=== PATIENT | female | born 1950 | race Caucasian/White ===

== ENCOUNTER 2021-02-03 04:48 | Observation (INO) | payer MEDICARE, SELFPAY ==
[2021-02-03] VITALS (11 sets, daily range): BP systolic 136–207; BP diastolic 67–77; PULSE 51–70; RESP 13–18; TEMP 35.8–36.9; O2SAT 94–99
--- NOTE | ~2021-02-03 | CT_ITS ---
EXAMINATION: CT cervical spine wo con DATE: 02/03/2021 07:24 INDICATION: Fall. Neck injury. TECHNIQUE: Computed tomography (CT) of the cervical spine was performed without intravenous contrast. Automated exposure control and iterative reconstruction technique were employed. Exam dose: 165.65 mGy-cm total exam DLP. COMPARISON: None FINDINGS: Status post anterior surgical spinal fusion at C5-C7. There is reversal cervical curvature. No fracture or dislocation or locked facet or prevertebral soft tissue swelling. Moderate degenerative disc disease at C3-4 and C4-5 and C7-T1. . There is degenerative change at the apophyseal joints throughout the cervical spine. IMPRESSION: Reversal cervical curvature Status post anterior cervical spine surgical fusion at C5-7 Cervical spondylosis Reviewed, dictated and finalized at [facility]. Reviewed, dictated and finalized at [facility].
--- NOTE | ~2021-02-03 | XR_ITS ---
EXAMINATION: XR chest 1V portable EXAM DATE: 02/03/2021 06:43 INDICATION: Fall, history of dementia and cancer. TECHNIQUE: Portable AP frontal chest x-ray was obtained. There is no prior study for comparison. FINDINGS: Right-sided Chemo-Port, intact catheter. The cardiac silhouette is enlarged. Some prominent reticulation, possible mild pulmonary edema or interstitial lung disease. No pneumothorax or pleural effusion. IMPRESSION: Cardiomegaly. Some indistinct reticulation, possible mild edema or interstitial lung dise ase. Reviewed, dictated and finalized at location [facility]. IMPRESSION: Cardiomegaly. Some indistinct reticulation, possible mild edema or interstitial lung disease.
--- NOTE | ~2021-02-03 | CT_ITS ---
EXAMINATION: CT brain wo con DATE: 02/03/2021 07:24 INDICATION: Fall TECHNIQUE: Computed tomography (CT) of the head was performed without intravenous contrast. The mA wa s adjusted according to patient size. Iterative reconstruction technique was employed. Exam dose: 60 5.33 mGy-cm total exam DLP. COMPARISON: None FINDINGS: There is a chronic small infarct of each cerebellar hemisphere. Left basal ganglia and anterior limb left internal capsule chronic lacunar infarcts. There is an old focal right parietal occipital infarct. Vertebral and bilateral carotid siphon internal carotid artery calcifications are noted. There is nonspecific diminished attenuation of the cerebral white matter, likely due to chronic small vessel ischemic changes. No intracranial mass lesion or hemorrhage, midline shift or mass effect or subdural or epidural hemat piero is detected. No fracture or bone destruction of the cranial vault. Included paranasal sinuses and the mastoid air cells are normally developed and aerated. IMPRESSION: Chronic bilateral cerebellar small infarct Chronic lacunar infarcts of the left basal ganglia and anterior limb of the left internal capsule Cerebral atherosclerosis and chronic small vessel ischemic changes of the cerebral white matter No acute intracranial finding or skull fracture Reviewed, dictated and finalized at [facility]. Reviewed, dictated and finalized at [facility]. IMPRESSION: Chronic bilateral cerebellar small infarct Chronic lacunar infarcts of the left basal ganglia and anterior limb of the lef t internal capsule Cerebral atherosclerosis and chronic small vessel ischemic changes of the cereb ral white matter No acute intracranial finding or skull fracture
--- NOTE | 2021-02-03 05:05 | ECG_ITS ---
Measurements Intervals [place] Rate: P: MI: QRS: QRSD: T: QT: QTc: Interpretive Statements SINUS RHYTHM DELAYED PRECORDIAL R/S TRANSITION BASELINE ARTIFACT- I, II, III, AVL, AVF BORDERLINE ECG Electronically Signed On 02-04-2021 13:23:00 CDT by Bandar Calderon D.O.
--- NOTE | 2021-02-03 05:10 | PC.NURSE ---
Patient's daughter states patient has also fallen twice in the past day and is unsure if she hit her head.
[2021-02-03 06:02] LABS: Basophils Absolute Auto 0.1 K/mm3 (0.0-0.1); Basophils Percent Auto 1.1 % (0.2-1.2); Eosinophils Percent Auto 0.3 % (0-4.4); Hematocrit 36.1 % (37.0-47.0); Hemoglobin 12.2 g/dL (12.0-15.0); Immature Granulocyte Absolute 0.07 K/mm3 (0.00-0.031); Immature Granulocyte Percent A 0.6 % (0-0.5); Lymphocytes Absolute Auto 0.73 K/mm3 (0.9-3.2); Lymphocytes Percent Auto 6.5 % (18.3-44.2); Mean Corpuscular HGB Conc 33.8 g/dl (32-36); Mean Corpuscular Volume 106.5 fl (80-100); Monocytes Absolute Auto 1.3 K/mm3 (0.1-0.6); Monocytes Percent Auto 11.4 % (2.6-8.5); Neutrophils Absolute Auto 8.9 K/mm3 (1.3-6.7); Neutrophils Percent Auto 80.1 % (45.5-73.1); Platelet Count Result 151 k/mm3 (150-375); Red Blood Count 3.39 M/mm3 (4.2-5.4); Red Cell Distribution Width 13.3 % (11.5-14.5); White Blood Count 11.2 K/mm3 (4.5-10.0)
[2021-02-03 06:04] LABS: Add Urine Microscopic? NO; Appearance Urine Clear (Clear); Bilirubin Urine Negative (Negative); Blood Urine Negative (Negative); Color Urine Straw (Yellow); Glucose Urine UA Negative (Negative); Ketones Urine Negative (Negative); Leukocyte Esterase Ur Negative LEU/UL (Negative); Nitrate Urine Negative (Negative); Protein Urine Negative (Negative); Specific Grav Ur 1.006 (1.001-1.035); Urobilinogen Urine Negative mg/dL (<2.0)
[2021-02-03 06:13] LABS: Acetaminophen < 10 ug/mL (10-30); Ethanol < 10 mg/dL (<10); Salicylate < 1.0 mg/dL (2-20)
[2021-02-03 06:14] LABS: Alanine Aminotransferase 10 U/L (4-35); Albumin Level 3.9 g/dL (3.5-5.1); Alkaline Phosphatase 30 U/L (38-126); Anion Gap 3 mmol/L (8-16); Aspartate Amino Transferase 29 U/L (14-36); Bilirubin,Total 0.6 mg/dL (0.2-1.3); Blood Urea Nitrogen 14 mg/dL (7-17); Calcium 8.9 mg/dL (8.4-10.2); Carbon Dioxide 35 mmol/L (22-30); Chloride 97 mmol/L (98-107); Estimated Glomerular Filt Rate 55; Glucose 92 mg/dL (65-110); Potassium 3.3 mmol/L (3.4-5.0); Sodium 135 mmol/L (137-145)
[2021-02-03 06:23] LABS: Amphetamine Screen Urine Negative (Negative); Barbiturate Screen Urine Negative (Negative); Benzodiazepines Screen Urine Positive (Negative); Cannabinoid Screen Urine Negative (Negative); Cocaine Screen Urine Negative (Negative); Methadone Screen Urine Negative (Negative); Opiate Screen Urine Negative (Negative); Phencyclidine Screen Urine Negative (Negative)
--- NOTE | 2021-02-03 06:33 | ED.OVERDOSE ---
HPI - Overdose General Chief Complaint: Overdose Stated Complaint: accidentally doubled dose of oxy/ sleeping meds Time Seen by Provider: 02/03/21 06:15 Source: family and RN notes reviewed Mode of arrival: EMS Limitations: altered mental status History of Present Illness HPI Narrative: This is a 70 year old female who presents for evaluation of an accidental overdose on her medications. Patient's daughter is at bedside. She states patient is here from out of town. She found patient on the kitchen floor tonight , and she was snoring and unresponsive. When she looked at patient's medications it appears that she took double her normal dose of her night time medication which include xanax, trazadone and oxycodone. Patient was given 2 mg narcan in route by EMS, and she became more responsive. Patient is back to being asleep again. Related Data Home Medications Medication Instructions Recorded Confirmed alprazolam 02/03/21 clonidine 02/03/21 estradiol mg 02/03/21 hydralazine 02/03/21 levothyroxine 02/03/21 oxycodone-acetaminophen 02/03/21 pantoprazole PO 02/03/21 trazodone 02/03/21 venlafaxine mg 02/03/21 Allergies Allergy/AdvReac Type Severity Reaction Status Date / Time meperidine [From Demerol] Allergy Unknown Verified 02/03/21 05:03 propoxyphene [From Darvon] Allergy Unknown Verified 02/03/21 05:03 Review of Systems Review of Systems: ROS unobtainable: Yes unobtainable due to mental status PMFSH Past Medical History Medical History (Updated 02/03/21 @ 08:56 by Rufina Sunshine MD) Anxiety Cerebral aneurysm Chronic pain Hypertension Hypothyroidism Surgical History Surgical History (Updated 02/03/21 @ 06:39 by Rufina Sunshine MD) H/O cerebral aneurysm repair Social History Social History (Updated 02/03/21 @ 06:38 by Rufina Sunshine MD) Smoking status: Smoker, status unknown Alcohol intake: unknown Substance use: unknown Exam Const: General: no acute distress Nutritional Appearance: thin Other: patient sleeping Eyes: Other: pinpoint pupil Resp: Effort & Inspection: normal respiratory effort and no retractions Auscultation: clear to auscultation bilaterally Cardio: Rate: regular rate Rhythm: regular rhythm Heart sounds: no murmurs GI: GI Palp: Yes Soft to palpation, No Tenderness to palpation present (GI) and No Guarding due to palpation present (GI) Auscultation: normal bowel sounds Skin: General skin exam: normal color Rashes: no rashes Neuro: General: moves all extremities Other: respond to sternal rub Extrem: General: normal to inspection Course Reevaluation(s) Reevaluation #1: I discussed with patient's daughter that she will be admitted for observation. she is able to protect her airway. Patient likely doubld dose on xanax, trazodone, oxycodone. Minimal response to narcan Date: 02/03/21 Time: 08:00 Consultations Consultation #1: I discussed case with DR. Og who accepts patien to the floor for observation. Date: 02/03/21 Time: 08:16 Vital Signs Vital signs: Vital Signs Temperature 98.5 F 02/03/21 04:46 Pulse Rate 70 02/03/21 04:46 Respiratory Rate 17 02/03/21 04:46 Blood Pressure 207/68 H 02/03/21 04:46 Pulse Oximetry 95 02/03/21 04:46 Temperature 98.5 F 02/03/21 04:46 Pulse Rate 54 L 02/03/21 08:07 Respiratory Rate 13 02/03/21 08:07 Blood Pressure 146/68 H 02/03/21 08:07 Pulse Oximetry 95 02/03/21 08:07 MDM - Overdose Lab Data Attestation: I reviewed the patient's lab results. Result diagrams: 02/03/21 05:49 02/03/21 05:50 Labs: Lab Results 02/03/21 02/03/21 02/03/21 Range/Units 05:45 05:45 05:49 WBC 11.2 H (4.5-10.0) K/mm3 RBC 3.39 L (4.2-5.4) M/mm3 Hgb 12.2 (12.0-15.0) g/dL Hct 36.1 L (37.0-47.0) % MCV 106.5 H (80-100) fl MCH 36.0 H (26-34) pg MCHC 33.8 (32-36) g/dl RDW 13.3 (11.5-14.5) % Pl
[2021-02-03 06:55] LABS: Alveolar/Arterial O2 Gradient 23.2 mmHg; Carboxyhemoglobin 0.3 % THb (0-2.0); Fractional Inspired Oxygen 21 %; HCO3 ABG 33.4 mEq/l (22.0-26.0); Methemoglobin ABG 0.4 %THb (0-1.5); Oxygen Content ABG 15.5 %vol (16.0-22.0); Oxygen Saturation ABG 93.6 % (95.0-100.0); Oxyhemoglobin 91.2 % THb (90.0-100.0); PCO2 ABG 50.2 mmHg (35.0-45.0); PO2 ABG 66.4 mmHg (80.0-100.0); PO2 FiO2 Ratio Arterial Blood 3.16 %; Reduced Hemoglobin 8.1 %THb (0-5.0); Total Hemoglobin 12.1 g/dL (12.0-18.0); pH ABG 7.441 (7.350-7.450)
[2021-02-03 06:56] LABS: Modified Allen's Test Unable to perform; Site Drawn RIGHT RADIAL
[2021-02-03] MEDS: NALOXONE HCL 0.4 MG/ML VIAL IV PUSH (07:45)
--- NOTE | 2021-02-03 07:51 | PC.NURSE ---
Per EDP at bedside Dr Jong ANNE, give second dose of 0.4 Narcan IVP.
[2021-02-03] MEDS: NALOXONE HCL 0.4 MG/ML VIAL (07:54)
--- NOTE | 2021-02-03 08:28 | PC.NURSE ---
called lab spoke to Radha feng on a Trop 1 baseline at 0828
[2021-02-03 09:28] LABS: Troponin I 0.035 ng/mL (0.000-0.034)
--- NOTE | 2021-02-03 12:49 | PM.IMHP ---
H&P: HPI History of Present Illness Date/Time: 02/03/21 12:49 Chief Complaint: Altered mental status Narrative: History was obtained from the patient's daughter was at bedside and from review of the patient's chart. 70-year-old female with history of Alzheimer dementia and prior history of on known type of cancer treated with chemotherapy resulting in chronic pain syndrome fluid from her home and [place] where she resides with her to visit her daughter locally. Her packed an adequate supply of her medication. He put her medications for travel and a Ziploc bag. Last evening she took the medication in a Ziploc bag. Then after her daughter went to bed the patient noted that the medication box was still full so she took that as well. She became very groggy and more confused and fell to her 3 times. No resultant injuries. This morning her daughter had difficulty awakening her so she brought her to the emergency department. Narcan on route helped her wake up. But then she went back to sleep again. Narcan in the emergency room allow the daughter to talk to her for 20 minutes or so. Then she was sound asleep again. Nighttime medications include Percocet 10-325, Xanax 0.5 mg, and trazodone 50 mg. Patient was at her baseline mental status with poor short-term memory. Upon arrival yesterday she had some episodes of diarrhea. Normally she is continent of bowel and bladder. However with the diarrhea, 3 episodes, she had incontinence of stool. Her baseline appetite is very good. Since last night she has not eaten. Prior to taking her nighttime medicines she had no complaints of chest pain shortness of breath swelling dizziness abdominal pain nausea vomiting. No recent weight loss. No fevers or chills. No cough or congestion. This history was obtained from the daughter. Review of Systems Review of Systems: ROS unobtainable: Yes unobtainable due to medical condition PMFSH Past Medical History Medical History (Updated 02/03/21 @ 13:23 by Smith Og MD) Anxiety Cerebral aneurysm Cerebrovascular disease Chronic pain Dementia History of cancer of unknown primary site Hypertension Hypothyroidism Surgical History Surgical History H/O cerebral aneurysm repair Family History Family History (Updated 02/03/21 @ 13:00 by Smith Og MD) Mother No problems noted. Father No problems noted. Social History Social History (Updated 02/03/21 @ 13:01 by Smith Og MD) Smoking status: Unknown if ever smoked Alcohol intake: unknown Substance use type: does not use Living arrangements: with family Additional living arrangements comments: Live with in [place]. Occupation/Education: retired Meds Home Medications and Allergies Home Medications Medication Instructions Recorded Confirmed Type alprazolam 02/03/21 History clonidine 02/03/21 History estradiol mg 02/03/21 History hydralazine 02/03/21 History levothyroxine 02/03/21 History oxycodone-acetaminophen 02/03/21 History pantoprazole PO 02/03/21 History trazodone 02/03/21 History venlafaxine mg 02/03/21 History Allergies Allergy/AdvReac Type Severity Reaction Status Date / Time meperidine [From Demerol] Allergy Unknown Verified 02/03/21 05:03 propoxyphene [From Darvon] Allergy Unknown Verified 02/03/21 05:03 Vital Signs Vital Signs - 24 hr 02/03/21 04:46 02/03/21 07:46 02/03/21 08:07 Temperature 98.5 F Pulse Rate 70 67 54 L Respiratory Rate 18 13 13 Blood Pressure 207/68 H 170/77 H 146/68 H Pulse Oximetry 95 96 95 02/03/21 09:05 02/03/21 09:16 02/03/21 10:46 Temperature Pulse Rate 57 L 68 57 L Respiratory Rate 14 15 15 Blood Pressure 136/68 158/71 H 169/70 H Pulse Oximetry 97 95 94 Exam Narrative: Exam Narrative: HEENT: PINPOINT PUPILS, sclerae nonicteric, pharyngeal muco
--- NOTE | 2021-02-03 13:29 | PC.NURSE ---
This patient, Haley Suarez, was admitted to [facility] Surg Room 322-01. Report received from NADINE Muhammad. Patient/family oriented to hospital policies and general routines including ID bracelet, bed and alarms, visiting hours, pain management, procedures, bathroom and other care routines, personal items, smoking policy, room service/diet, and visiting hours. Information on how to activate the Rapid Response Team has been discussed. Patient/Family are encouraged to report perceived risks to care and to ask questions if they do not understand what they are told or what they should do.
[2021-02-03] MEDS: KCL 20MEQ/0.9% SOD CHL 1,000 ML 75 ML IV CONT (14:59)
[2021-02-03] MEDS: cloNIDine HCL 0.2 MG TABLET PO (17:11)
[2021-02-03] MEDS: hydrALAZINE HCL 50 MG TABLET 100 MG PO (17:11)
[2021-02-03] MEDS: ACETAMINOPHEN 500 MG TABLET 1000 MG PO (17:11)
[2021-02-03] MEDS: PROPRANOLOL HCL 10 MG TABLET PO (17:11)
[2021-02-03] MEDS: ENOXAPARIN 40 MG/0.4 ML SYRINGE SUB-Q (17:12)
[2021-02-03] MEDS: GABAPENTIN 300 MG CAPSULE PO (17:58)
[2021-02-03] MEDS: ACYCLOVIR 400 MG TABLET PO (17:58)
[2021-02-03] MEDS: rOPINIRole HCL 1 MG TABLET 2 MG PO (17:58)
[2021-02-03] MEDS: GABAPENTIN 300 MG CAPSULE 600 MG PO (21:16)
[2021-02-03] MEDS: traZODone HCL 50 MG TABLET 150 MG PO (21:17)
[2021-02-03] MEDS: oxyCODONE HCL (*CRX) 2.5 MG TAB IR PO (21:22)
[2021-02-04] VITALS: PULSE 62
[2021-02-04] MEDS: ACETAMINOPHEN 500 MG TABLET 1000 MG PO ×2 (00:15→06:34)
[2021-02-04] MEDS: LORazepam INJ (*CRX) 2 MG/ML VIAL 0.5 MG IV PUSH (00:16)
[2021-02-04 04:00] VITALS: PULSE 71
[2021-02-04] MEDS: KCL 20MEQ/0.9% SOD CHL 1,000 ML 75 ML IV CONT (05:36)
[2021-02-04] MEDS: LEVOTHYROXINE SODIUM 75 MCG TABLET PO (05:38)
[2021-02-04 06:00] VITALS: BP 139/68; PULSE 53; RESP 16; TEMP 36.3; O2SAT 95
[2021-02-04] MEDS: oxyCODONE HCL (*CRX) 2.5 MG TAB IR PO (07:48)
--- NOTE | 2021-02-04 07:49 | PC.NURSE ---
After evening med pass, patient continued to deny having taken her medication. She said repeatedly that she had left her pills on her late meal tray. Her tray was returned to show her the empty med cups and this seemed to finally give her enough sense of confirmation not to ask for the rest of the night. This is further evidence that there is some concern for forgetting the medications she has taken at night.
[2021-02-04] MEDS: VENLAFAXINE HCL 75 MG TABLET PO (07:50)
[2021-02-04] MEDS: estradioL 1 MG TABLET 2 MG PO (07:50)
[2021-02-04] MEDS: hydrALAZINE HCL 50 MG TABLET 100 MG PO (07:51)
[2021-02-04] MEDS: NIFEdipine 30 MG TAB.ER.24 90 MG PO (07:51)
[2021-02-04] MEDS: cloNIDine HCL 0.2 MG TABLET PO (07:51)
[2021-02-04] MEDS: GABAPENTIN 300 MG CAPSULE PO (07:52)
[2021-02-04] MEDS: ACYCLOVIR 400 MG TABLET PO (07:52)
[2021-02-04] MEDS: PANTOPRAZOLE 40 MG TABLET PO (07:52)
[2021-02-04 08:00] VITALS: PULSE 50
[2021-02-04 08:03] VITALS: BMI 21.5
[2021-02-04 08:42] LABS: Anion Gap 1 mmol/L (8-16); Blood Urea Nitrogen 6 mg/dL (7-17); Calcium 8.6 mg/dL (8.4-10.2); Carbon Dioxide 31 mmol/L (22-30); Chloride 102 mmol/L (98-107); Estimated CRCL calculation 52 ml/min; Estimated Glomerular Filt Rate > 60; Glucose 92 mg/dL (65-110); Potassium 3.5 mmol/L (3.4-5.0); Sodium 134 mmol/L (137-145)
[2021-02-04 10:39] VITALS: PULSE 65
[2021-02-04] MEDS: PROPRANOLOL HCL 10 MG TABLET PO (10:39)
[2021-02-04] MEDS: LOPERAMIDE HCL 2 MG CAPSULE PO (11:15)
--- NOTE | 2021-02-04 11:20 | PM.DS ---
DS: Admitting Diagnosis Admitting Diagnosis Accidental drug ingestion DS: Discharge Diagnosis Discharge Diagnosis (1) Accidental drug ingestion: Code(s): T50.901A - Poisoning by unspecified drugs, medicaments and biological substances, accidental (unintentional), initial encounter Status: Acute Assessment and Plan: Accidentally took her evening medications twice due to confusion with her pill boxes because she was traveling. Admitted for observation Received low-dose naloxone Her mental status improved. Discussed at length the need to or in eyes medications and pillbox and consider setting reminders on phone, especially when traveling. She will need to follow-up with her PCP and review her medication list. She would benefit from benzodiazepine taper in consider alternative pain management options aside from narcotics (2) Decreased responsiveness: Code(s): R41.89 - Other symptoms and signs involving cognitive functions and awareness Status: Acute Assessment and Plan: Consistent with accidental drug overdose as described above (3) Chronic pain syndrome: Code(s): G89.4 - Chronic pain syndrome Status: Acute Assessment and Plan: Narcotics and benzodiazepines initially held. Were resumed upon improvement of mental status. As above, will need to follow-up with PCP for consideration of medication adjustment/taper (4) Dementia: Code(s): F03.90 - Unspecified dementia without behavioral disturbance Status: Acute Assessment and Plan: Baseline not clear to me. She was A&O x4 on my encounter. (5) History of cancer of unknown primary site: Code(s): Z85.9 - Personal history of malignant neoplasm, unspecified Status: Acute Assessment and Plan: History of remission with lingering neuropathic pain (6) Hypokalemia: Code(s): E87.6 - Hypokalemia Status: Acute Assessment and Plan: Likely due to poor intake and episode of diarrhea 02/02. Potassium was replaced and levels normalized. Anticipate complete resolution with continuation of her regular diet (7) Hyponatremia: Code(s): E87.1 - Hypo-osmolality and hyponatremia Status: Acute Assessment and Plan: Very mild. Likely due to decreased intake and episode of diarrhea 02/02. (8) Diarrhea: Code(s): R19.7 - Diarrhea, unspecified Status: Acute Assessment and Plan: Resolved. May have been due to change in diet during travel. No sign of acute infection. Given one time immodium and started on probiotic. (9) Hypertension: Code(s): I10 - Essential (primary) hypertension Status: Acute Assessment and Plan: BP reviewed. Continue home regimen (10) Hypothyroidism: Code(s): E03.9 - Hypothyroidism, unspecified Status: Acute Assessment and Plan: continue home regimen (11) Acute respiratory failure with hypoxia and hypercarbia: Code(s): J96.01 - Acute respiratory failure with hypoxia; J96.02 - Acute respiratory failure with hypercapnia Status: Acute Assessment and Plan: Clinically due to narcotic and benzodiazepine overdose. Resolved entirely and she was tolerating room air. (12) Cerebrovascular disease: Code(s): I67.9 - Cerebrovascular disease, unspecified Status: Acute Assessment and Plan: As shown by old infarcts and atherosclerosis on CT brain. Continue aspirin therapy DS: Summary Hospital Course Hospital Course: Date of admission: 02/03/2021 date of discharge: 02/04/2021 Haley Suarez is a 70-year-old female with a history cerebrovascular disease, dementia, chronic pain, hypertension, and hypothyroidism who presented to the emergency department on 02/03/2021 after an accidental overdose of her medications. She was traveling to the area from [place] to visit her daughter. She took the medications that were organ
== END 2021-02-04 12:04 | disposition home or self-care (01) ==
LOC: ANHED 08:56 → ANH3MEDSUR 12:02
PROVIDERS: Admitting Provider Internal Medicine; Emergency Provider General Practice; Visit Provider Internal Medicine Critical Care Medicine
DX: T42.4X1A Poisoning by benzodiazepines, accidental (unintentional), initial encounter (principal); T43.211A Poisoning by selective serotonin and norepinephrine reuptake inhibitors, accidental (unintentional), initial encounter; T40.2X1A Poisoning by other opioids, accidental (unintentional), initial encounter; R40.20 Unspecified coma; J96.01 Acute respiratory failure with hypoxia; J96.02 Acute respiratory failure with hypercapnia; E87.6 Hypokalemia; E87.1 Hypo-osmolality and hyponatremia; G89.4 Chronic pain syndrome; R19.7 Diarrhea, unspecified; G30.9 Alzheimer's disease, unspecified; F02.80 Dementia in other diseases classified elsewhere, unspecified severity, without behavioral disturbance, psychotic disturbance, mood disturbance, and anxiety; I10 Essential (primary) hypertension; E03.9 Hypothyroidism, unspecified; I67.9 Cerebrovascular disease, unspecified; M47.812 Spondylosis without myelopathy or radiculopathy, cervical region; Z85.9 Personal history of malignant neoplasm, unspecified; Z92.21 Personal history of antineoplastic chemotherapy; F41.9 Anxiety disorder, unspecified; Z98.1 Arthrodesis status
CPT/HCPCS: 36415; 36600; 70450; 71045; 72125; 80048; 80053; 80307; 81003; 82375; 82805; 83050; 84443; 84484; 85025; 93005; 96361; 96372; 96374; 96375; 99285; A9270; G0378; J1650; J2060; J2310; J3480

== ENCOUNTER 2023-10-22 11:47 | Inpatient (IN) | payer MEDICARE, SELFPAY ==
[2023-10-22] VITALS (28 sets, daily range): BP systolic 92–165; BP diastolic 55–87; PULSE 53–78; RESP 10–19; TEMP 36.2–36.3; O2SAT 96–100; BMI 19.2
--- NOTE | ~2023-10-22 | XR_ITS ---
EXAMINATION: XR chest 1V DATE: 10/22/2023 12:34 INDICATION: Altered mental status. TECHNIQUE: A single frontal view of the chest was obtained on 2 radiographs. COMPARISON: None. FINDINGS: There is no pneumonia, pleural effusion, or pneumothorax. The heart size is normal. There i s a right internal jugular port with tip in superior vena cava. There are surgical clips in right nec k. IMPRESSION: 1. No acute cardiopulmonary disease. Reviewed, dictated and finalized at location A.
--- NOTE | ~2023-10-22 | CT_ITS ---
EXAMINATION: CT brain wo con DATE: 10/22/2023 12:37 INDICATION: Unresponsive. TECHNIQUE: Computed tomography (CT) of the head was performed without intravenous contrast. The mA wa s adjusted according to patient size. Iterative reconstruction technique was employed. The dose-lengt h product was 529.67 mGy-cm. COMPARISON: None FINDINGS: There are old infarcts in right frontotemporal region, right frontal lobe, and right pariet al lobe. There is an old lacunar infarct in the owen. There are old infarcts in the left basal gangli a. There are scattered areas of low attenuation in the cerebral white matter, likely chronic small ve ssel ischemic disease. There is an old infarct in left occipital lobe. There are old infarcts in the cerebellum bilaterally. There is no intracranial hemorrhage, acute infarction, or abnormal intracrani al mass lesion. There is ex vacuo dilatation of right lateral ventricle. There are likely changes of ocular lens replacement surgeries. The paranasal sinuses are clear. The mastoid air cells are normal. There is a stent in right middle cerebral artery. There is a surgical clip in the area of right midd le cerebral artery. There are changes of right-sided craniotomy. IMPRESSION: 1. Multiple old infarcts in the brain. Reviewed, dictated and finalized at location A.
[2023-10-22 12:00] LABS: Glucose Point of Care 142 mg/dl (65-105)
[2023-10-22] MEDS: SODIUM CHLORIDE 0.9% IV 1,000 ML 999 ML IV CONT ×2 (12:06→13:01)
--- NOTE | 2023-10-22 12:08 | ECG_ITS ---
SEE SCANNED COPY FOR CONFIRMED REPORT MTDD
--- NOTE | 2023-10-22 12:09 | ED.AMS ---
HPI - Altered Mental Status General Chief Complaint: Altered Mental Status Stated Complaint: unresponsive Time Seen by Provider: 10/22/23 12:04 Source: patient and EMS Mode of arrival: EMS Limitations: altered mental status History of Present Illness HPI narrative: 73-year-old female presenting via EMS for being ?unresponsive? while getting her nails done. They found her hypotensive and bradycardic and gave her push dose epinephrine. Prior to arrival patient is now completely alert, disoriented and slightly confused but she is following commands. She has no complaints but is a poor historian Related Data Home Medications Medication Instructions Recorded Confirmed acyclovir 400 mg tablet 400 mg PO BID 02/03/21 02/03/21 alprazolam 0.5 mg tablet 0.5 mg PO Q6-8H PRN Anxiety 02/03/21 02/03/21 aspirin 81 mg chewable tablet 81 mg PO DAILY 02/03/21 02/03/21 cholecalciferol (vitamin D3) 25 25 mcg PO DAILY 02/03/21 02/03/21 mcg (1,000 unit) capsule (Vitamin D3) clonidine HCl 0.2 mg tablet 0.2 mg PO TID 02/03/21 02/03/21 cyanocobalamin (vitamin B-12) 2,500 mcg PO DAILY 02/03/21 02/03/21 2,500 mcg tablet estradiol 2 mg tablet 2 mg PO DAILY 02/03/21 02/03/21 furosemide 40 mg tablet 40 mg PO DAILY 02/03/21 02/03/21 gabapentin 300 mg capsule 300 mg PO BID 02/03/21 02/03/21 gabapentin 300 mg capsule 600 mg PO HS 02/03/21 02/03/21 hydralazine 100 mg tablet 100 mg PO BID 02/03/21 02/03/21 ibrutinib 140 mg capsule 420 mg PO HS 02/03/21 02/03/21 (Imbruvica) levothyroxine 75 mcg tablet 75 mcg PO DAILY 02/03/21 02/03/21 nifedipine 90 mg tablet,extended 90 mg PO DAILY 02/03/21 02/03/21 release pantoprazole 40 mg tablet,delayed 40 mg PO DAILY 02/03/21 02/03/21 release propranolol 10 mg tablet 10 mg PO BID 02/03/21 02/03/21 pyridoxine (vitamin B6) 500 mg 1,000 mg PO DAILY 02/03/21 02/03/21 tablet ropinirole 2 mg tablet 2 mg PO QPM 02/03/21 02/03/21 trazodone 50 mg tablet 150 mg PO HS 02/03/21 02/03/21 venlafaxine 75 mg tablet 75 mg PO DAILY 02/03/21 02/03/21 Allergies Allergy/AdvReac Type Severity Reaction Status Date / Time meperidine [From Demerol] Allergy Unknown Verified 02/03/21 14:04 propoxyphene [From Darvon] Allergy Unknown Verified 02/03/21 14:04 Review of Systems Review of Systems: ROS unobtainable: Yes unobtainable due to mental status PMFSH Past Medical History Medical History Anxiety Cerebral aneurysm Cerebrovascular disease Chronic pain Dementia History of cancer of unknown primary site Hypertension Hypothyroidism Surgical History Surgical History H/O cerebral aneurysm repair Family History Family History Mother No problems noted. Father No problems noted. Social History Social History Smoking packs per day: 0.5 Smoking cigarettes per day: 10.0 Years smoked: 30 Smoking pack-years: 15.00 Smoking status: Unknown if ever smoked Tobacco type: cigarettes Alcohol intake: unknown Substance use type: does not use Living arrangements: with family Additional living arrangements comments: Live with in [place]. Occupation/Education: retired Spiritual care concerns: No Exam Narrative: Constitutional: Generally well appearing, no acute distress, sluggish to respond Head: Atraumatic, no deformities. Eyes: Pupils equal, round, and reactive to light. Neck: Supple, no tracheal deviation, no JVD. ENMT: Mucous membranes moist Cardiovascular: S1, S2 auscultated. No murmurs, rubs, or gallops. No S3/S4. Normal Distal pulses. No peripheral edema. Respiratory: Lung sounds equal. No wheezes, rales, or rhonchi. Gastrointestinal: Abdomen was soft and non-tender. Non-distended. No rebound or guarding. Genitourinary: Deferred M
[2023-10-22 12:28] LABS: Basophils Absolute Auto 0.1 K/mm3 (0.0-0.1); Basophils Percent Auto 1.1 % (0.2-1.2); Eosinophils Absolute Auto 0.1 K/mm3 (0-0.3); Hematocrit 39.2 % (37.0-47.0); Hemoglobin 13.2 g/dL (12.0-15.0); Immature Granulocyte Absolute 0.02 K/mm3 (0.00-0.031); Immature Granulocyte Percent A 0.3 % (0-0.5); Lymphocytes Absolute Auto 1.34 K/mm3 (0.9-3.2); Lymphocytes Percent Auto 20.6 % (18.3-44.2); Mean Corpuscular HGB Conc 33.7 g/dl (32-36); Mean Corpuscular Hemoglobin 33.6 pg (26-34); Mean Corpuscular Volume 99.7 fl (80-100); Mean Platelet Volume 11.5 fl (7.4-10.4); Monocytes Absolute Auto 0.8 K/mm3 (0.1-0.6); Monocytes Percent Auto 11.7 % (2.6-8.5); Neutrophils Absolute Auto 4.2 K/mm3 (1.3-6.7); Neutrophils Percent Auto 64.3 % (45.5-73.1); Platelet Count Result 211 k/mm3 (150-375); Red Blood Count 3.93 M/mm3 (4.2-5.4); Red Cell Distribution Width 12.4 % (11.5-14.5); White Blood Count 6.5 K/mm3 (4.5-10.0)
[2023-10-22 12:34] LABS: Ammonia < 9 umol/L (9-30); Ethanol < 10 mg/dL (<10)
[2023-10-22 12:36] LABS: Prothrombin Time 13.6 Seconds (11.1-14.7)
[2023-10-22 12:38] LABS: Alanine Aminotransferase 11 U/L (6-35); Albumin Level 4.1 g/dL (3.5-5.1); Alkaline Phosphatase 45 U/L (38-126); Anion Gap 8 mmol/L (4-12); Aspartate Amino Transferase 21 U/L (14-36); Bilirubin,Total 0.4 mg/dL (0.2-1.3); Blood Urea Nitrogen 27 mg/dL (7-17); Calcium 9.2 mg/dL (8.4-10.2); Carbon Dioxide 28 mmol/L (22-30); Chloride 99 mmol/L (98-107); Creatine Kinase 47 U/L (30-135); Estimated CRCL calculation 24 ml/min; Estimated Glomerular Filt Rate 34; Glucose 133 mg/dL (65-110); Partial Thromboplastin Time 28.3 Seconds (22.3-36.8); Potassium 3.4 mmol/L (3.4-5.0); Sodium 135 mmol/L (137-145)
[2023-10-22 12:49] LABS: Troponin I 0.013 ng/mL (0.000-0.034)
[2023-10-22 13:58] LABS: Lactic Acid Reflex 1.5 mmol/L (0.7-2.0)
[2023-10-22] MEDS: SODIUM CHLORIDE 0.9% IV 1,000 ML 125 ML IV CONT (15:45)
--- NOTE | 2023-10-22 16:49 | PC.NURSE ---
Dinner tray ordered for pt.
[2023-10-22 18:10] LABS: Amphetamine Screen Urine Negative (Negative); Appearance Urine Clear (Clear); Barbiturate Screen Urine Negative (Negative); Benzodiazepines Screen Urine Negative (Negative); Bilirubin Urine Negative (Negative); Blood Urine Negative (Negative); Cannabinoid Screen Urine Negative (Negative); Cocaine Screen Urine Negative (Negative); Color Urine Yellow (Yellow); Glucose Urine UA Negative (Negative); Ketones Urine Negative (Negative); Leukocyte Esterase Ur Negative LEU/UL (Negative); Methadone Screen Urine Negative (Negative); Nitrate Urine Negative (Negative); Opiate Screen Urine Negative (Negative); Phencyclidine Screen Urine Negative (Negative); Protein Urine Negative (Negative); Specific Grav Ur 1.008 (1.001-1.035); Urobilinogen Urine 0.2 mg/dL (<2.0); pH Urine 5.5 (5.0-9.0)
[2023-10-22 18:13] LABS: Add Urine Microscopic? NO
--- NOTE | 2023-10-22 18:15 | PC.NURSE ---
Called for an update on pts dinner, sheyla has not arrived to ED.
--- NOTE | 2023-10-22 21:28 | PM.IMHP ---
H&P: HPI History of Present Illness Date/Time: 10/22/23 21:28 Chief Complaint: altered mental status Narrative: This is a 73-year-old female with past medical history significant for anxiety, hypertension, hypothyroidism, chronic pain, dementia. Patient was brought to the emergency room via EMS after having episode of syncope found to be bradycardic and hypotensive received epinephrine on the field upon arrival to emergency room patient was back to her usual. Patient has no recollection of events and expresses that she has been diagnosed with dementia and has problems with her memory and word-finding. Patient can not really contribute in a meaningful way to her history. Preliminary workup here has been essentially nonrevealing. Patient has been placed in observation for further evaluation management and treatment. EXAMINATION: CT brain wo con DATE: 10/22/2023 12:37 INDICATION: Unresponsive. TECHNIQUE: Computed tomography (CT) of the head was performed without intravenous contrast. The mA was adjusted according to patient size. Iterative reconstruction technique was employed. The dose-length product was 529.67 mGy-cm. COMPARISON: None FINDINGS: There are old infarcts in right frontotemporal region, right frontal lobe, and right parietal lobe. There is an old lacunar infarct in the owen. There are old infarcts in the left basal ganglia. There are scattered areas of low attenuation in the cerebral white matter, likely chronic small vessel ischemic disease. There is an old infarct in left occipital lobe. There are old infarcts in the cerebellum bilaterally. There is no intracranial hemorrhage, acute infarction, or abnormal intracranial mass lesion. There is ex vacuo dilatation of right lateral ventricle. There are likely changes of ocular lens replacement surgeries. The paranasal sinuses are clear. The mastoid air cells are normal. There is a stent in right middle cerebral artery. There is a surgical clip in the area of right middle cerebral artery. There are changes of right-sided craniotomy. IMPRESSION: 1. Multiple old infarcts in the brain. EXAMINATION: XR chest 1V DATE: 10/22/2023 12:34 INDICATION: Altered mental status. TECHNIQUE: A single frontal view of the chest was obtained on 2 radiographs. COMPARISON: None. FINDINGS: There is no pneumonia, pleural effusion, or pneumothorax. The heart size is normal. There is a right internal jugular port with tip in superior vena cava. There are surgical clips in right neck. IMPRESSION: 1. No acute cardiopulmonary disease. Review of Systems Review of Systems: AMS ROS unobtainable: Yes other ([facility] Past Medical History Medical History Anxiety Cerebral aneurysm Cerebrovascular disease Chronic pain Dementia History of cancer of unknown primary site Hypertension Hypothyroidism Surgical History Surgical History H/O cerebral aneurysm repair Family History Family History Mother No problems noted. Father No problems noted. Social History Social History Smoking packs per day: 0.5 Smoking cigarettes per day: 10.0 Years smoked: 30 Smoking pack-years: 15.00 Smoking status: Former smoker Tobacco type: cigarettes Alcohol intake: never Substance use: never Substance use type: former substance user Do You Feel Safe in your Home?: Yes Lack of Transportation: No Lack of Food: Never True Current Housing: I Have Housing Concerned About Future Housing: No Difficulty Paying Gas/Electric Bills: No Difficulty Paying for Meds: No Currently Unemployed: No Education: High School Diploma/GED Difficulty w/ Childcare or Family Care: No Living arrangements: with family A
--- NOTE | 2023-10-22 21:37 | PC.NURSE ---
Pt is 98% on room air, taken off 2 L NC O2 at this time.
--- NOTE | 2023-10-22 22:15 | ADMGEN ---
This patient, Haley Suarez, was admitted to IMU Room 206-01. Patient/family oriented to hospital policies and general routines including ID bracelet, bed and alarms, visiting hours, pain management, procedures, bathroom and other care routines, personal items, smoking policy, room service/diet, and visiting hours. Information on how to activate the Rapid Response Team has been discussed. Patient/Family are encouraged to report perceived risks to care and to ask questions if they do not understand what they are told or what they should do.
[2023-10-23] VITALS (16 sets, daily range): BP systolic 133–178; BP diastolic 74–109; PULSE 60–102; RESP 14–20; TEMP 36–36.9; O2SAT 95–97
[2023-10-23] MEDS: SODIUM CHLORIDE 0.9% IV 1,000 ML 125 ML IV CONT (05:45)
[2023-10-23] MEDS: LEVOTHYROXINE SODIUM 75 MCG TABLET PO (05:46)
[2023-10-23] MEDS: carvediloL 12.5 MG TABLET BY MOUTH ×2 (08:25→21:33)
[2023-10-23] MEDS: LACOSAMIDE (*CRX) 100 MG TABLET PO ×2 (08:25→17:51)
[2023-10-23] MEDS: amLODIPine BESYLATE 5 MG TABLET 10 MG PO (08:25)
[2023-10-23] MEDS: MEMANTINE 10 MG TABLET PO ×2 (08:25→21:33)
[2023-10-23] MEDS: GABAPENTIN 300 MG CAPSULE PO ×2 (08:27→11:59)
[2023-10-23] MEDS: VENLAFAXINE HCL 75 MG TABLET PO ×2 (08:28→21:33)
[2023-10-23] MEDS: estradioL 1 MG TABLET 2 MG PO (08:28)
[2023-10-23] MEDS: levETIRAcetam 250 MG TABLET PO ×2 (08:29→21:32)
[2023-10-23] MEDS: levETIRAcetam 500 MG TABLET PO ×2 (08:29→21:32)
--- NOTE | 2023-10-23 11:24 | PM.IMPN ---
Progress Note: A&P Assessment and Plan (1) JENNIFER (acute kidney injury): Code(s): N17.9 - Acute kidney failure, unspecified Status: Acute (2) Syncope: Code(s): R55 - Syncope and collapse Status: Acute (3) Polypharmacy: Code(s): Z79.899 - Other shelter (current) drug therapy Status: Acute (4) Dementia: Code(s): F03.90 - Unspecified dementia, unspecified severity, without behavioral disturbance, psychotic disturbance, mood disturbance, and anxiety Status: Acute Plan # syncope - patient had episode of hypotension, may be orthostatic - now hypertensive resume home amlodipine and Coreg - will check orthostatic vitals - stable normal sinus rhythm rate 80s to 100s, no bradycardia, no arrhythmia - patient 2 L of fluid fluids overnight, will discontinue IV fluids as she is tolerating p.o. intake and is hypertensive # chronic conditions - essential hypertension: Amlodipine 10 mg, carvedilol 12.5 mg b.i.d., p.r.n. hydralazine - abdominal spasms: Bentyl p.r.n. - peripheral neuropathy: Continue home gabapentin - seizure disorder: Vimpat, Keppra - hypothyroidism: Synthroid - dementia: Namenda - insomnia: Trazodone - depression: Venlafaxine Diet: Regular diet DVT prophylaxis: Lovenox Code status: full code Disposition: Likely home tomorrow, downgrade to med floor Social: daughter Elisa updated [phone] Subjective Date/time seen: 10/23/23 11:25 Interval history: Patient seen and examined. She is doing well no new complaints. Will have her work with PT and OT. I discussed with patient's daughter Elisa [phone]. patient apparently occasionally will have these hypotension episodes. this morning she was hypertensive in all her home meds have been resumed. We will downgrade from IMU to med surge. Will continue monitor overnight and PT evaluation. Likely discharge home tomorrow. She has PCP appointment this coming Thursday. patient denies fever, chills, nausea, vomiting, diarrhea, lightheadedness, dizziness. She has dementia and poor recollection of events. Review of Systems Review of Systems: 10 point ROS complete, negative other than what is specified in HPI. Exam Narrative: - GENERAL: Pleasant older woman in no acute distress. Well-nourished. - EYES: EOMI. Anicteric. - HENT: Moist mucous membranes. - LUNGS: Clear to auscultation bilaterally, no wheezing, rhonchi, or rales. - CARDIOVASCULAR: Regular rate and rhythm. No murmur. No JVD. - ABDOMEN: Soft, non-tender and non-distended. No palpable masses. - EXTREMITIES: No edema. Peripheral pulses 2+. Non-tender. - NEUROLOGIC: No focal neurological deficits. CN II-XII grossly intact. - PSYCHIATRIC: Awake, Alert and oriented. Appropriate mood and affect. pleasantly confused, difficulty recalling - SKIN: No rashes or lesions. Warm. - LYMPH: No cervical lymphadenopathy. Objective Data Vital Signs Vital Signs: Vital Signs - 24 hr 10/22/23 11:52 10/22/23 12:02 10/22/23 13:16 Temperature Pulse Rate 59 L 53 L Respiratory Rate 12 13 Blood Pressure 92/55 L 126/64 Pulse Oximetry 96 96 97 Oxygen Delivery Room Air Nasal Cannula Oxygen Flow Rate 2 10/22/23 15:51 10/22/23 13:45 10/22/23 14:00 Temperature Pulse Rate 57 L 54 L 55 L Respiratory Rate 14 14 15 Blood Pressure 148/71 H Pulse Oximetry 97 Oxygen Delivery Oxygen Flow Rate 10/22/23 14:15 10/22/23 14:30 10/22/23 14:45 Temperature Pulse Rate 57 L 54 L 61 Respiratory Rate 14 19 18 Blood Pressure Pulse Oximetry Oxygen Delivery Oxygen Flow Rate 10/22/23 15:02 10/22/23 15:15 10/22/23 15:16 Temperature Pulse Rate 53 L 57 L 56 L Respiratory Rate 14 17 12 Blood Pressure 140/76 Pulse Oximetry Oxygen Delivery Oxygen Flow Rate 10/22/23 15:35 10/22/23 15:46 10/22/23 15:47 Temperature Pulse Rate 54 L 59 L 57 L Respiratory Rate 10 L 16 16 Blood Pressure 148/71 H Puls
[2023-10-23] MEDS: DICYCLOMINE HCL 10 MG CAPSULE 20 MG PO ×2 (11:59→17:51)
[2023-10-23] MEDS: LOPERAMIDE HCL 2 MG CAPSULE PO ×2 (12:45→21:33)
--- NOTE | 2023-10-23 18:34 | PC.NURSE ---
This patient, Haley Suarez, was received from IMU on 10/23/23 at 1835. Patient/family oriented to unit policies and routines
--- NOTE | 2023-10-23 18:38 | PC.NURSE ---
This patient, Haley Suarez, was transferred to [ [id number]] on 10/23/23 at 1835. Personal belongings sent with patient. Report given to [ NADINE Collins @ [phone]]. Appropriate documentation sent with patient.
[2023-10-23] MEDS: GABAPENTIN 300 MG CAPSULE 600 MG PO (21:33)
[2023-10-24] MEDS: DICYCLOMINE HCL 10 MG CAPSULE 20 MG PO ×2 (05:32→13:14)
[2023-10-24 05:36] VITALS: BP 164/90; PULSE 76; RESP 12; TEMP 36.8; O2SAT 94
[2023-10-24] MEDS: LEVOTHYROXINE SODIUM 75 MCG TABLET PO (05:50)
[2023-10-24 06:54] LABS: Anion Gap 6 mmol/L (4-12); Blood Urea Nitrogen 11 mg/dL (7-17); Calcium 9.3 mg/dL (8.4-10.2); Carbon Dioxide 32 mmol/L (22-30); Chloride 94 mmol/L (98-107); Estimated CRCL calculation 45 ml/min; Estimated Glomerular Filt Rate > 60; Glucose 106 mg/dL (65-110); Potassium 3.1 mmol/L (3.4-5.0); Sodium 132 mmol/L (137-145)
--- NOTE | 2023-10-24 09:38 | PCPTNOTE ---
pt refused PT evaluation, states her stomach is upset and she is not feeling up for therapy , PT informed pt about the importance of participation, pt stated she may participate later today but not now, will follow
[2023-10-24 09:52] VITALS: PULSE 76
[2023-10-24] MEDS: amLODIPine BESYLATE 5 MG TABLET 10 MG PO (09:52)
[2023-10-24] MEDS: carvediloL 12.5 MG TABLET BY MOUTH (09:52)
[2023-10-24] MEDS: ENOXAPARIN 30 MG/0.3 ML SYRINGE SUB-Q (09:52)
[2023-10-24] MEDS: LACOSAMIDE (*CRX) 100 MG TABLET PO (09:53)
[2023-10-24] MEDS: MEMANTINE 10 MG TABLET PO (09:53)
[2023-10-24] MEDS: estradioL 1 MG TABLET 2 MG PO (09:53)
[2023-10-24] MEDS: levETIRAcetam 500 MG TABLET PO (09:53)
[2023-10-24] MEDS: levETIRAcetam 250 MG TABLET PO (09:53)
[2023-10-24] MEDS: GABAPENTIN 300 MG CAPSULE PO ×2 (09:59→13:14)
[2023-10-24] MEDS: LOPERAMIDE HCL 2 MG CAPSULE PO (10:06)
[2023-10-24] MEDS: VENLAFAXINE HCL 75 MG TABLET PO (10:08)
--- NOTE | 2023-10-24 12:48 | PM.DS ---
DS: Admitting Diagnosis Discharge Date October 24, 2023 Admitting Diagnosis Syncope DS: Discharge Diagnosis Discharge Diagnosis (1) JENNIFER (acute kidney injury): Code(s): N17.9 - Acute kidney failure, unspecified Status: Acute (2) Syncope: Code(s): R55 - Syncope and collapse Status: Acute DS: Summary Hospital Course Hospital Course: Ms. Suarez is a pleasant 73-year-old female history anxiety, chronic pain, dementia, hypertension, hypothyroidism, cerebrovascular disease, who presents after an episode of syncope. The patient was noted to be unresponsive while getting her nails done. EMS hurts she was hypotensive and bradycardic and gave her a dose of epinephrine. On arrival the patient was slightly confused but following commands. Subsequently she was volume resuscitated and her blood pressure became elevated. Her home dose antihypertensives were restarted except for p.r.n. hydralazine. Telemetry did not reveal any arrhythmias. Likely due to the aforementioned event, the patient has developed an JENNIFER subsequently resolved again with fluid resuscitation. On 10/23 she is at her baseline and in stable condition to return home with family. She will repeat BMP in 2 days to follow-up on mild electrolyte abnormalities and follow-up with PCP within 1 week. Patient was amenable to this plan. She was full code during her admission. Time Spent with Patient Time attestation: Total time spent providing and/or coordinating discharge services: Exam Const: General: cooperative and no acute distress Resp: Effort & Inspection: normal respiratory effort Auscultation: clear to auscultation bilaterally Cardio: Rate: regular rate Rhythm: regular rhythm Heart sounds: S1 normal heart sound present and S2 normal heart sound present GI: GI Palp: No abdominal tenderness Auscultation: normal bowel sounds DS: Data Data Completed and Pending Labs on day of discharge: Labs from last 24 hours 10/24/23 10/24/23 06:07 06:04 Sodium 132 L Potassium 3.1 L Chloride 94 L Carbon Dioxide 32 H Anion Gap 6 BUN 11 D Creatinine 0.70 Estim Creat Clear Calc 45 Estimated GFR > 60 Glucose 106 Calcium 9.3 Magnesium Pending Preliminary micro results at discharge 10/22/23 13:53 Blood Culture - Preliminary Blood 10/22/23 14:18 Blood Culture - Preliminary Blood Discharge Plan Discharge Attending physician on discharge: Keyanna Dyson Discharging Clinician: Keyanna Dyson Patient Disposition: Home, Self-Care Activity: may shower Diet: heart healthy Patient Instructions: Antibiotic Form Stand Alone Forms: General Discharge Information Follow-up/Referrals: Loly,MD Hakeem [Primary Care Provider] - 1 Week Discharge Medications: Continued carvedilol 25 mg tablet 12.5 mg BID levetiracetam 500 mg tablet 500 mg PO BID levetiracetam 250 mg tablet 250 mg PO BID dicyclomine 20 mg tablet 20 mg PO Q6H amlodipine 10 mg tablet 10 mg PO DAILY nitroglycerin 0.4 mg Tablet, Sublingual 0.4 mg SUBLINGUAL Q5M PRN (Reason: Chest Pain) Rx Instructions: do not exceed 3 doses per episode memantine 10 mg tablet 10 mg PO BID lacosamide 100 mg tablet 100 mg PO BID loperamide [Imodium] 2 mg Capsule See Rx Instructions .ROUTE .COMPLEX Rx Instructions: 1 capsule every AM 1 capsule every other HS (10/19) venlafaxine 75 mg Tablet 75 mg PO BID trazodone 50 mg Tablet 300 mg PO HS estradiol 2 mg Tablet 2 mg PO DAILY levothyroxine 75 mcg Tablet 75 mcg PO DAILY gabapentin 300 mg capsule 300 mg PO BID Rx Instructions: one tablet in am and 1 tablet at noon gabapentin 300 mg Capsule 600 mg PO HS Held hydralazine 25 mg tablet 25 mg PO Q6H PRN (Reason: Hypertension) Hold Instructions: Discuss use of this with your PCP Rx Instructions: q
[2023-10-24 12:53] LABS: Magnesium 1.7 mg/dL (1.6-2.3)
[2023-10-24] MEDS: POTASSIUM CHLORIDE INJ 40 MEQ in SODIUM CHLORIDE 0.9% IV 500 ML 130 MEQ IVPB (13:14)
[2023-10-24 14:00] VITALS: BP 155/89; PULSE 75; RESP 18; TEMP 37.4; O2SAT 96
[2023-10-24 14:25] LABS: Potassium 3.3 mmol/L (3.4-5.0)
[2023-10-24] MEDS: POTASSIUM CHLORIDE 20 MEQ PACKET (FOR LIQUID) PO (14:49)
== END 2023-10-24 15:15 | disposition home or self-care (01) | DRG 312 ==
LOC: ANHED 14:06 → ANHIMU 10-23 10:09 → ANH3MEDSUR 10-24 12:45 → ANHIMU 10-27 11:01
PROVIDERS: Admitting Provider Student in an Organized Health Care Education/Training Program; Emergency Provider Emergency Medicine; PCP Hospitalist; Visit Provider General Practice
DX: I95.1 Orthostatic hypotension (principal); N17.9 Acute kidney failure, unspecified; F03.90 Unspecified dementia, unspecified severity, without behavioral disturbance, psychotic disturbance, mood disturbance, and anxiety; G40.909 Epilepsy, unspecified, not intractable, without status epilepticus; G47.00 Insomnia, unspecified; E03.9 Hypothyroidism, unspecified; R25.2 Cramp and spasm; I10 Essential (primary) hypertension; F41.9 Anxiety disorder, unspecified; F32.A Depression, unspecified; G62.9 Polyneuropathy, unspecified; G89.4 Chronic pain syndrome; Z87.891 Personal history of nicotine dependence; Z79.899 Other long term (current) drug therapy
CPT/HCPCS: 36415; 70450; 71045; 80048; 80053; 80307; 81003; 82140; 82550; 82948; 83605; 83735; 84132; 84443; 84484; 85025; 85610; 85730; 87040; 93005; 96360; 96361; 97166; 97535; 99285; A9270; J1650; J3480; J7030; J7040

== ENCOUNTER 2024-08-11 13:09 | Emergency (ER) | payer MEDICARE, SELFPAY ==
[2024-08-11] VITALS (25 sets, daily range): BP systolic 120–199; BP diastolic 45–108; PULSE 0–117; RESP 0–25; TEMP 37.7–38.7; O2SAT 1–98
--- NOTE | ~2024-08-11 | XR_ITS ---
CHEST RADIOGRAPH CLINICAL HISTORY: cva, ETT placement . COMPARISON: 10/22/2023 TECHNIQUE: Single portable view of the chest. FINDINGS Right internal jugular central venous port catheter identified with its tip projecting over the cavoa trial junction. Endotracheal tube is identified with its tip projecting approximately 13 mm above the base of the car roshni. The remainder of the cardiomediastinal silhouette is otherwise unremarkable. Coarse interstitial lung markings are detected bilaterally, with prominence of the bilateral pulmonar y sabina, unchanged from prior. The remainder of the lungs are clear. Fixation hardware within the lower cervical spine. IMPRESSION: Endotracheal tube with its tip approximately 13 mm above the base of the linda. Withdrawal of approximately 2 cm is suggested for optimal radiographic placement. Coarse interstitial lung markings detected bilaterally suggesting chronic interstitial lung disease. Reviewed, dictated and finalized at location A. T SUPERVISOR RN IMPRESSION: Endotracheal tube with its tip approximately 13 mm above the base of the linda . Withdrawal of approximately 2 cm is suggested for optimal radiographic placemen t. Coarse interstitial lung markings detected bilaterally suggesting chronic inter stitial lung disease.
[2024-08-11] MEDS: HYDROmorphone HCL INJ (*CRX) 1 MG/ML SYR IV PUSH (13:36)
--- NOTE | 2024-08-11 13:37 | ED.NEUROSD ---
HPI - Neuro Symptoms/Deficit General Chief Complaint: Suspected CVA Stated Complaint: stroke, ams Time Seen by Provider: 08/11/24 13:10 History of Present Illness HPI Narrative: Patient was sent in from home for altered mental status. She was diagnosed with COVID several days ago. She has seen a [facility] and discharge she did not meet admission criteria. Since then her condition has gotten remarkably worse. She was brought hospital today for altered mental status. EMS activated her as a stroke although she does not have any lateralizing signs. Patient is lethargic and cannot provide any information. I discussed her condition with her daughter and her . The patient has severe dementia. She has significant pain on a daily basis and has very poor quality of life. Discussed goals of care the initially he said intubation okay but no CPR. Related Data Home Medications ?Medication ?Instructions ?Recorded ?Confirmed ?Last Taken ?Type estradiol 2 mg tablet 2 mg PO DAILY 02/03/21 10/23/23 Unknown History gabapentin 300 mg capsule 300 mg PO BID 02/03/21 10/23/23 Unknown History gabapentin 300 mg capsule 600 mg PO HS 02/03/21 10/23/23 Unknown History levothyroxine 75 mcg tablet 75 mcg PO DAILY 02/03/21 10/23/23 Unknown History trazodone 50 mg tablet 300 mg PO HS 02/03/21 10/23/23 Unknown History venlafaxine 75 mg tablet 75 mg PO BID 02/03/21 10/23/23 Unknown History amlodipine 10 mg tablet 10 mg PO DAILY 10/22/23 10/23/23 Unknown History carvedilol 25 mg tablet 12.5 mg BID 10/22/23 10/22/23 Unknown History dicyclomine 20 mg tablet 20 mg PO Q6H 10/22/23 10/23/23 Unknown History hydralazine 25 mg tablet 25 mg PO Q6H PRN Hypertension 10/22/23 10/23/23 Unknown History lacosamide 100 mg tablet 100 mg PO BID 10/22/23 10/22/23 Unknown History levetiracetam 250 mg tablet 250 mg PO BID 10/22/23 10/22/23 Unknown History levetiracetam 500 mg tablet 500 mg PO BID 10/22/23 10/22/23 Unknown History memantine 10 mg tablet 10 mg PO BID 10/22/23 10/22/23 Unknown History nitroglycerin 0.4 mg sublingual 0.4 mg sublingual Q5M PRN Chest 10/22/23 10/22/23 Unknown History tablet Pain loperamide 2 mg capsule See Rx Instructions .Route .COMPLEX 10/23/23 10/23/23 10/22/23 History Allergies Allergy/AdvReac Type Severity Reaction Status Date / Time meperidine (From Demerol) Allergy Unknown Verified 02/03/21 14:04 propoxyphene (From Darvon) Allergy Unknown Verified 02/03/21 14:04 [facility] Past Medical History Medical History Cerebrovascular disease Dementia History of cancer of unknown primary site Cerebral aneurysm Anxiety Chronic pain Hypothyroidism Hypertension Surgical History Surgical History H/O cerebral aneurysm repair Family History Family History Mother No problems noted. Father No problems noted. Social History Social History Smoking packs per day: 0.5 Smoking cigarettes per day: 10.0 Years smoked: 30 Smoking pack-years: 15.00 Smoking status: Former smoker Tobacco type: cigarettes Alcohol intake: never Substance use: never Substance use type: former substance user Do You Feel Safe in your Home?: Yes Lack of Transportation: No Lack of Food: Never True Current Housing: I Have Housing Concerned About Future Housing: No Difficulty Paying Gas/Electric Bills: No Difficulty Paying for Meds: No Currently Unemployed: No Education: High School Diploma/GED Difficulty w/ Childcare or Family Care: No Living arrangements: with family Additional living arrangements comments: Live with in [place]. Occupation/Education: retired Spiritual care concerns: No Exam Narrative: APPEARANCE: Agustin skin, responsive to voice, toxic, cachectic, frail Head: atraumatic. EYES: EOMI, NOSE: Atraumatic NECK: Trachea midline RESPIRATORY: Tachypneic, scattered rhonchi CARDIOVASCULAR: tachycardic no peripheral edema ABDOMINAL: Non-distended MUSCULOSKELETAl: No obvious deformities NEURO: Alert voice moving for 4 extremities to pain SKIN:: Agustin PSYCHIATRIC: Lethargic Course Vital Signs Vital signs: Vital Signs Pulse Rate 106 H 08/11/24 13:40 Pulse Oximetry 98 08/11/24 13:40 Oxygen Delivery Mechanical Ventilation 08/11/24 13:40 Fraction of Inspired Oxygen 100 08/11/24 13:40 Pulse Rate 109 H 08/11/24 14:47 Respiratory Rate 21 H 08/11/24 14:47 Pulse Oximetry 98 08/11/24 13:40 Oxygen Delivery Mechanical Ventilation 08/11/24 14:44 Fraction of Inspired Oxygen 100 08/11/24 14:44 Procedures Intubation Intubation #1: Intubation Date: 08/11/24 Time out performed: Yes sedative: Etomidate Mg Given: 20 paralytic: Rocuronium Mg Given: 100 Laryngoscope: Amanda Tube Size (cm): 7.5 Method of Intubation: orotracheal Number of Attempts: 1 Tube Secured Depth (cm): 22 Tube Secured Location: teeth Tube Placement Confirmation: visualized tube passing through cords, equal breath sounds bilaterally and no breath sounds over epigastrium Patient Tolerated Procedure: well Intubation Complications: none MDM - Neuro Symptoms/Deficit MDM Narrative Medical decision making narrative: -Course: 74-year-old female presenting for altered mental status. EMS triage the patient has a stroke and she was taken to the CT scanner for stat imaging. While in CT scanner she desaturated. She is then wheeled back to room emergently. Patient was hypoxic his mental status. She was intubated emergently. Sepsis workup ordered. Family that arrived. I discussed goals of care with them they stated that she has severe dementia, severe chronic pain and has horrible quality of life at home. They do not believe that it would be in her best interest to pursue care. The patient has a living will stating she would not want her to be delayed be artificial means. Her oxygen requirements are increasing despite intubation and high vent settings. I discussed her care with both her daughter and her and the patient will be made comfort measures with terminal extubation. Patient was pronounced at 1742. Lab Data 08/11/24 14:15 08/11/24 14:15 Labs: Lab Results 08/11/24 08/11/24 08/11/24 Range/Units 14:01 14:14 14:15 WBC Cancelled RBC Cancelled Hgb Cancelled Hct Cancelled MCV Cancelled MCH Cancelled MCHC Cancelled RDW Cancelled Plt Count Cancelled MPV Cancelled Immature Gran % (Auto) Cancelled Neut % (Auto) Cancelled Lymph % (Auto) Cancelled Powell % (Auto) Cancelled Eos % (Auto) Cancelled Baso % (Auto) Cancelled Lymph # (Auto) Cancelled Powell # (Auto) Cancelled Eos # (Auto) Cancelled Baso # (Auto) Cancelled Abs Immat Gran (auto) Cancelled Absolute Neuts (auto) Cancelled Absolute Nucleated RBC Cancelled Nucleated RBC % Cancelled % Immature Plt Fraction Cancelled PT Cancelled Cancelled INR Cancelled Cancelled APTT Cancelled Cancelled D-Dimer Cancelled Cancelled Minute Volume Not Reportable Vent Mode Cmv Tidal Volume 400 ml PEEP 5 cmH2O Peak Inspir Pressure Not Reportable Pressure Support Not Reportable Sodium 133 L (137-145) mmol/L Potassium 3.7 (3.4-5.0) mmol/L Chloride 95 L (98-107) mmol/L Carbon Dioxide 28 (22-30) mmol/L Anion Gap 10 (4-12) mmol/L BUN 10 (7-17) mg/dL Creatinine 0.79 (0.7-1.0) mg/dL Estim Creat Clear Calc 30 ml/min Estimated GFR > 60 (59 - ) Glucose 111 H (65-110) mg/dL Calcium 8.6 (8.4-10.2) mg/dL Phosphorus 4.0 (2.5-4.5) mg/dL Magnesium (1.6-2.3) mg/dL Total Bilirubin (0.2-1.3) mg/dL AST (14-36) U/L ALT (6-35) U/L Alkaline Phosphatase (38-126) U/L Troponin I (0.000-0.034) ng/mL NT-Pro-B Natriuret Pep (19.9-100) pg/mL Total Protein (6.3-8.2) g/dL Albumin (3.5-5.1) g/dL Lipase (23-300) U/L Influenza A (RT-PCR) (Negative) Influenza B (RT-PCR) (Negative) RSV (RT-PCR) (Negative) SARS-CoV-2 RNA (RT-PCR) (Negative) 08/11/24 08/11/24 08/11/24 Range/Units 14:15 14:15 14:15 WBC RBC Hgb Hct MCV MCH MCHC RDW Plt Count MPV Immature Gran % (Auto) Neut % (Auto) Lymph % (Auto) Powell % (Auto) Eos % (Auto) Baso % (Auto) Lymph # (Auto) Powell # (Auto) Eos # (Auto) Baso # (Auto) Abs Immat Gran (auto) Absolute Neuts (auto) Absolute Nucleated RBC Nucleated RBC % % Immature Plt Fraction PT INR APTT D-Dimer Minute Volume Vent Mode Tidal Volume ml PEEP cmH2O Peak Inspir Pressure Pressure Support Sodium (137-145) mmol/L Potassium (3.4-5.0) mmol/L Chloride (98-107) mmol/L Carbon Dioxide (22-30) mmol/L Anion Gap (4-12) mmol/L BUN (7-17) mg/dL Creatinine (0.7-1.0) mg/dL Estim Creat Clear Calc ml/min Estimated GFR (59 - ) Glucose (65-110) mg/dL Calcium (8.4-10.2) mg/dL Phosphorus Cancelled (2.5-4.5) mg/dL Magnesium 1.8 Cancelled (1.6-2.3) mg/dL Total Bilirubin 0.7 (0.2-1.3) mg/dL AST 46 H (14-36) U/L ALT 15 (6-35) U/L Alkaline Phosphatase 47 (38-126) U/L Troponin I 0.012 (0.000-0.034) ng/mL NT-Pro-B Natriuret Pep 447 H Cancelled (19.9-100) pg/mL Total Protein 7.0 (6.3-8.2) g/dL Albumin 3.9 (3.5-5.1) g/dL Lipase 21 L (23-300) U/L Influenza A (RT-PCR) (Negative) Influenza B (RT-PCR) (Negative) RSV (RT-PCR) (Negative) SARS-CoV-2 RNA (RT-PCR) (Negative) 08/11/24 Range/Units 14:15 WBC RBC Hgb Hct MCV MCH MCHC RDW Plt Count MPV Immature Gran % (Auto) Neut % (Auto) Lymph % (Auto) Powell % (Auto) Eos % (Auto) Baso % (Auto) Lymph # (Auto) Powell # (Auto) Eos # (Auto) Baso # (Auto) Abs Immat Gran (auto) Absolute Neuts (auto) Absolute Nucleated RBC Nucleated RBC % % Immature Plt Fraction PT INR APTT D-Dimer Minute Volume Vent Mode Tidal Volume ml PEEP cmH2O Peak Inspir Pressure Pressure Support Sodium (137-145) mmol/L Potassium (3.4-5.0) mmol/L Chloride (98-107) mmol/L Carbon Dioxide (22-30) mmol/L Anion Gap (4-12) mmol/L BUN (7-17) mg/dL Creatinine (0.7-1.0) mg/dL Estim Creat Clear Calc ml/min Estimated GFR (59 - ) Glucose (65-110) mg/dL Calcium (8.4-10.2) mg/dL Phosphorus (2.5-4.5) mg/dL Magnesium (1.6-2.3) mg/dL Total Bilirubin (0.2-1.3) mg/dL AST (14-36) U/L ALT (6-35) U/L Alkaline Phosphatase (38-126) U/L Troponin I (0.000-0.034) ng/mL NT-Pro-B Natriuret Pep (19.9-100) pg/mL Total Protein (6.3-8.2) g/dL Albumin (3.5-5.1) g/dL Lipase Cancelled (23-300) U/L Influenza A (RT-PCR) Negative (Negative) Influenza B (RT-PCR) Negative (Negative) RSV (RT-PCR) Negative (Negative) SARS-CoV-2 RNA (RT-PCR) Positive A (Negative) ABG Data ABG results: 08/11/24 14:01 Puncture Site Right radial ABG pH 7.479 H ABG pCO2 36.0 ABG pO2 63.4 L ABG PO2/FiO2 Ratio 0.63 ABG HCO3 26.1 H ABG O2 Saturation 93.8 L ABG O2 Content 20.9 ABG Base Excess 2.9 A-a Gradient 613.6 Oxyhemoglobin 92.0 Total Hemoglobin 16.2 O2 Delivery Device Ventilator O2 Liters/Min Not Reportable Vent Rate 18 FiO2 100 Discharge Plan Discharge Clinical Impression: Hypoxic respiratory failure, End of life care Patient Disposition: Condition: Patient Language: Amharic Prescriptions: No Action carvedilol 25 mg tablet 12.5 mg BID levetiracetam 500 mg tablet 500 mg PO BID hydralazine 25 mg tablet 25 mg PO Q6H PRN (Reason: Hypertension) Rx Instructions: q6 if systolic is >160 levetiracetam 250 mg tablet 250 mg PO BID dicyclomine 20 mg tablet 20 mg PO Q6H amlodipine 10 mg tablet 10 mg PO DAILY nitroglycerin 0.4 mg Tablet, Sublingual 0.4 mg SUBLINGUAL Q5M PRN (Reason: Chest Pain) Rx Instructions: do not exceed 3 doses per episode memantine 10 mg tablet 10 mg PO BID lacosamide 100 mg tablet 100 mg PO BID loperamide 2 mg Capsule See Rx Instructions .ROUTE .COMPLEX Rx Instructions: 1 capsule every AM 1 capsule every other HS (10/19) venlafaxine 75 mg Tablet 75 mg PO BID trazodone 50 mg Tablet 300 mg PO HS estradiol 2 mg Tablet 2 mg PO DAILY levothyroxine 75 mcg Tablet 75 mcg PO DAILY gabapentin 300 mg capsule 300 mg PO BID Rx Instructions: one tablet in am and 1 tablet at noon gabapentin 300 mg Capsule 600 mg PO HS Follow-up/Referrals: Loly,MD Hakeem [Primary Care Provider] -
--- OUTSIDE RECORDS SUMMARY | 2024-08-11 14:03 | XMS_ITS | Data Portability ---
Author Organization [facility] Address [address] [place] [address] Care Team Providers Care Manager Lpn Name Role Phone BRITTANY JASSO Referring Provider FLORENTIN CHILD Supervisor Doping Assessment No assessment recorded. Plan of Treatment Reminders Order Date Submit Date Provider Last Modified By Organization Details Last Modified Time Details Appointments None recorded. Lab None recorded. Referral None recorded. Procedures None recorded. Surgeries excision hand mass (SURG) 2019 020 [facility], [address], [place], [address], 0 10:49:48 Imaging None recorded. Medication Orders None recorded. Patient TargetsNo targets recorded. Patient Instructions Encounter Date Encounter Id Patient Instructions Last Modified By Organization Details Last Modified Time 09/15/2019 [id number] pt to OR for index mass removal dorsal DIP joint area. [email or web address] Not available 09/15/2019 14:19:44 Reason for Referral None Reported. Results Created Date Observation Date Name Description Value Unit Range Abnormal Flag Note LastModifiedBy Organization Detail LastModifiedTime Result Notes None recorded. Problems Name Problem SNOMED Code Status Onset Date Resolution Date Notes Provider Name and Address Organization Details Recorded Time Aneurysm 376833090 Active 020 x 7 GARY RUTLEDGE [facility] 0 13:33:58 Problem Notes None recorded. Medical Equipment None Reported. Allergies No known drug allergies Medications Name Sig Start Date Stop Date Status Note LastModified by Organization Details LastModified Time furosemide 40 mg tablet active Not Available Not Available No t Available clonidine HCl 0.1 mg tablet active Not Available Not Availabl e Not Available venlafaxine 75 mg tablet active Not Available Not Available No t Available trazodone 50 mg tablet active Not Available Not Available Not Available nifedipine ER 90 mg tablet,extended release active Not Available Not Available Not Available acyclovir 400 mg tablet active Not Available Not Available No t Available levothyroxine 75 mcg tablet active Not Available Not Availabl e Not Available alprazolam 0.25 mg tablet active Not Available Not Available No t Available oxycodone-aceta minophen 10 mg-325 mg tablet active Not Available Not Available Not Available levothyroxine 50 mcg tablet active Not Available Not Availabl e Not Available ropinirole 2 mg tablet active Not Available Not Available Not Available nitroglycerin 0.4 mg sublingual tablet active Not Available Not Available Not Available diclofenac sodium 50 mg tablet,delayed release TAKE 1 TABLET BY MOUTH EVERY DAY active Not Available Not Available No t Available M-M-R II (PF) 1,000-12,500 TCID50/0.5 mL subcutaneous solution ADM 0.5ML SC UTD active Not Available Not Available No t Available Vitals Date Recorded Body height Body mass index (BMI) Body weight Provider Name and Address Organization Details Last Updated DateTime 09/15/2019 160.02 cm 20.5 kg/m2 44031.71 g GARY RUTLEDGE [facility] 09/15/2019 13:35:10 Social History Question Answer Notes LastModified by Infinia ion Details LastModified Time Tobacco Smoking Status Former Smoker GARY RUTLEDGE [facility] 09/15/2019 13:34:19 How Many Years Have You Smoked Tobacco? 26 [email or web address] Information not available 09/15/2019 Sex: Unknown Functional Status None recorded. Mental Status None recorded. Family History Nothing Reported. Medical History Condition Response Diabetes N Chronic Cough N Any Infectious Disease N Coronary Artery Disease N Chemotherapy or Radiation Therapy Y Night Sweats N Nickel/Metal Allergy N Bleeding/Clotting Disorder or Blood Medina sfusion N Rashes or Skin Difficulty N Respiratory Disease N Cancer Y Back Problems Y Stroke N Dental Difficulty/Missing Teeth Y Emotional Distress/Anxiety Y Frequent/Severe Headaches N Eye Problem/Vision Difficulties N Seizure/Epilepsy N Convulsions/Blackouts N Hepatitis N No Past Medical Problems Reported N Hypertension Y Problem with Anesthesia N Gynecological HistoryNo gynecological history recorded. Obstetrics History GPAL:G 0 P 0 0 0 0 Past Encounters Encounter ID Performer Location Encounter Start Date Encounter Closed Date Diagnosis/Indication Diagnosis SNOMED-CT Code Diagnosis ICD10 Code Diagnosis Note [id number] Juan Anders DO [facility] [address] [place] [address] 09/15/2019 13:11:21 09/15/2019 14:51:08 Lump on finger 041112813 R22.31 Health Concerns Section Related Observation LastModified by Organization Detai ls LastModified Time None Recorded Concern Status LastModified by Organization Details LastModified Time None Recorded Advance Directives Directive None Recorded Payers Encounter Date Sequence Insurance Name Policy Number Policy Hernandez Covered Member ID Hernandez Member ID Guarantor Name 09/15/2019 2 [employer] (MEDICARE SUPPLEMENT) Haley Suarez [id number] Haley Suarez 09/15/2019 1 [place] Haley Suarez [id number] Haley Suarez Notes Date Note Type Note Provider Name and Address Organization Details Recorded Time 09/15/2019 text/html Wrist/HandRepor max bypatient.Hand Dominance:right Location:left index / right small fingers Juan Anders DO [address], [place], [address], [facility], [facility] 09/15/2019 14:20:08 OBGyn Episode No OBEpisode recorded.
--- OUTSIDE RECORDS SUMMARY | 2024-08-11 14:04 | XMS_ITS ---
Author Organization [facility] Address [address] [facility] [address] [place] [address] Phone Care Team Providers Care Fiberglass Finisher Name Role Phone Hakeem Salcido MD Primary Care Provider [phone] Active Problems Problem Noted Date Diagnosed Date Sensorineural hearing loss (SNHL) of both ears 0 08/02/2024 Assessment & Plan (08/02/2024 9:09 AM AUTOMATIC HEAD SAWYER): Hearing test today - moderate hearing loss, hearing aids recommended Numbness and tingling of both lower extremities 06/28/2024 Moderate Lewy body dementia with mood disturbanc e 04/20/2024 Visual hallucination 04/20/2024 Vascular dementia with behavior disturbance 03/2024 Assessment & Plan (06/14/2024 4:11 PM AUTOMATIC HEAD SAWYER): Stable, secondary to history of cerebral aneurysms, occurred after repair, has followed up with vascular evaluation with no further repairs required Continue to monitor Encounter for care related to Port-a-Cath 2023 Waldenstrom's macroglobulinemia 02/11/2024 Assessment & Plan (02/11/2024 4:47 PM CDT): Patient has history of Waldenstrom's macroglobulinemia ; has been in remission; with regular surveillance; has been over a year since she has been evaluated by Oncology; will refer to Oncology for further evaluation; request records from prior doctors Psychophysiological insomnia 02/11/2024 Assessment & Plan (02/11/2024 4:49 PM CDT): Not well controlled, worsening; patient is waking up at night at times; occasionally wondering from bed; concern from family regarding risk for falls Will discontinue trazodone by tapering over the next 2 weeks Start mirtazapine 50 mg nightly given patient also reports some decreased appetite Recommend patient use bed alarm in order to alert family when patient gets out of bed Vitamin B6 deficiency 12/15/2023 Vitamin B12 deficiency 12/15/2023 Pharyngoesophageal dysphagia 11/17/2023 Assessment & Plan (11/17/2023 4:10 PM CDT): Episodes of difficulty with swallowing, fluid backing up in mouth and aspiration Complete loss of motor skills Symptoms can occur all day long, but still able to walk but slowly Less functional left arm; unclear if TIA, advanced in of Alzheimer's disease or possible stroke Lumbar back pain 02/03/2023 Assessment & Plan (02/03/2023 5:56 PM CDT): Limits patient, has history of nerve cancer impacting nerve sheath Two lumbar surgeries and neck surgery Pain radiates into right leg and groin Continue gabapentin 300 mg t.i.d. Chronic nausea 02/02/2023 Hypertension, essential 01/21/2023 Assessment & Plan (06/14/2024 4:10 PM AUTOMATIC HEAD SAWYER): Stable, well controlled, blood pressure at goal; no orthostatics Continue amlodipine 10 mg daily, carvedilol 12.5 mg b.i.d., hydralazine 25 mg p.r.n. for systolic blood pressure greater than 160 Assessment & Plan (02/11/2024 4:49 PM CDT): Stable, well controlled, blood pressure at goal; no chest pain or pressure; no orthostatics Continue hydralazine 25 mg b.i.d., carvedilol 12.5 mg b.i.d., amlodipine 10 mg daily Assessment & Plan (12/24/2023 4:32 PM CDT): BP 142/72. Patient is prone to orthostatic hypotension. Continue current medications Assessment & Plan (11/17/2023 4:07 PM CDT): Stable, well controlled, blood pressure goal today No chest pain or headaches, no orthostatics Continue amlodipine 10 mg daily, labetalol b.i.d. Assessment & Plan (04/27/2023 12:38 PM CDT): Stable, well controlled; however patient reports symptoms that may be consistent with orthostatics, including worsening dizziness on standing Continue amlodipine 10 mg daily, hydralazine 25 mg t.i.d. Decrease carvedilol to 12.5 mg b.i.d. Assessment & Plan (02/02/2023 5:06 PM CDT): Blood pressure elevated today; no headaches or chest pain; patient is not taking medication today due to nausea Continue hydralazine 25 mg t.i.d., carvedilol 25 mg b.i.d., amlodipine 10 mg daily Assessment & Plan (01/21/2023 4:48 PM CDT): -will continue amlodipine 5 as Bp was initially soft -will keep holding BB as sinu sbrady, asymptomatic Neuropathy 01/21/2023 Assessment & Plan (06/14/2024 4:10 PM AUTOMATIC HEAD SAWYER): Stable, generally well controlled, does have pain in bilateral feet Continue gabapentin 300 mg Assessment & Plan (11/17/2023 4:09 PM CDT): Continues to have pain in legs; progressing, also occur in low back and arms Continue gabapentin 300 mg Assessment & Plan (04/27/2023 12:38 PM CDT): Stable, no current complaints Continue gabapentin 300 mg t.i.d. Assessment & Plan (01/21/2023 4:49 PM CDT): -continue home gabapentin Seizure disorder ([facility]) 01/21/2023 Assessment & Plan (06/14/2024 4:10 PM AUTOMATIC HEAD SAWYER): Stable, well controlled; no episodes since adjustment of medications Continue Keppra 1000 mg b.i.d. Assessment & Plan (02/11/2024 4:48 PM CDT): Stable, well controlled; follows with Neurology; continue Keppra 750 mg b.i.d. Assessment & Plan (11/17/2023 4:09 PM CDT): Patient has episodes of ? he may GB? , agitation and self-harm, has had improvement with management of current medications Patient scheduled for EEG Continue Keppra 750 mg b.i.d. Assessment & Plan (02/03/2023 5:55 PM CDT): Stable, improving; had episode of abnormal seizures, recently started on Keppra which has been improving symptoms Continues to have poor sleep in his withdrawn Continue Keppra 500 mg, 250 mg Assessment & Plan (02/02/2023 5:05 PM CDT): Stable, well controlled; patient reports no recent seizures; continue Keppra; patient recently started on lacosamide; however patient and family report worsening nausea since starting medication Will continue to monitor, may discontinue lacosamide to reduce nausea Assessment & Plan (01/21/2023 4:51 PM CDT): -was seenby neurology -continue home keppra 750 bid -lacosamide 100 bid recommended by neurology, will continue -outpatient neuro check after dc as per neuro recs Hypothyroidism, unspecified 01/21/2023 Assessment & Plan (06/14/2024 4:11 PM AUTOMATIC HEAD SAWYER): Stable, well controlled, no major changes to weight or activity levels Continue levothyroxine 75 mcg daily Assessment & Plan (11/17/2023 4:08 PM CDT): Stable, well controlled, Continue levothyroxine 75 mcg daily Assessment & Plan (04/27/2023 12:38 PM CDT): Stable, well controlled; TSH at target Continue levothyroxine 75 mcg daily Assessment & Plan (02/03/2023 5:56 PM CDT): Stable, continue levothyroxine 75 mcg daily, check TSH Assessment & Plan (01/21/2023 4:52 PM CDT): -on home levothyroxine 75 mcg -pending repeat tsh Depression, major, recurrent 01/21/2023 Assessment & Plan (06/14/2024 4:11 PM AUTOMATIC HEAD SAWYER): Stable, mood goes up and down; continue venlafaxine 225 mg daily Assessment & Plan (12/24/2023 4:34 PM CDT): Discussed plan of care with patient and her [id number]. We will add bupropion SR 150 mg once daily in the morning. Patient lives with [id number] and her son who are available to help monitor her condition and report any problems. She already has an appointment scheduled on 01/26/[address] Salcido. Assessment & Plan (11/17/2023 4:09 PM CDT): Worsening, decreased motivation for activity, withdrawn from activities Continue venlafaxine 225 mg daily Assessment & Plan (01/21/2023 4:53 PM CDT): -continue mirtazepine -was recently started on vanlafaxine and trazodone by out patient, will keep holding as polypharmacy could also be a contributing factor Generalized abdominal pain 01/21/2023 Assessment & Plan (02/03/2023 5:57 PM CDT): Has nausea diarrhea and stomach pain; some vertigo Start dicyclomine 20 mg q.6 hours Assessment & Plan (01/21/2023 4:55 PM CDT): -chronic abdominal pain -was recently started by outpatient GI ; famotidine 20 bid and dicyclomine 20 tid -reports improvement; will continue Urinary tract infection without hematuria, site unspecified 01/20/2023 Assessment & Plan (02/02/2023 5:05 PM CDT): Well controlled, resolved; patient reports no further symptoms, per family patient is back to baseline Continue to monitor closely for evidence of recurrent UTI, consistent with delirium Assessment & Plan (01/21/2023 4:57 PM CDT): -improved from yesterday -presented with concern for acute stroke that was ruled out, AMS is likely secondary to metabolic encephalopathy in setting of UTI (positive UA) as she responded to IVF hydration; symptoms resolved -blood cx NTD -urine cx cooking -will continue ceftriaxone for 5 days -oral fluid intake encouraged Establishing care with new doctor, encounter for 01/19/2023 Falling 11/07/2021 Aneurysm ([facility]) 08/29/2018 Assessment & Plan (11/17/2023 4:09 PM CDT): No rupture; worsening cognitive function; multifocal infarcts on imaging Follows with Neurosurgery, scheduled for angiogram Current Oncology Plans No current plan information found. Other Current Plans IV Maintenance Therapy Plan & Alteplase (CATHFLO ACTIVASE) - orders for occluded catheters* Plan Start Date:03/21/2024 Plan Provider:David Hinton MD Linked Problems Encounter for care related t o Port-a-Cath Treatment Medications No medications scheduled. Past Plans No past plan information found. Radiation Treatments * No radiation treatments are documented for this patient in [facility]. Treatments may have been administered in another system. Lifetime Dose Tracking * Chemical Lifetime Dose Automatic Entry Manual Entr y Fluoro Time 10.8 minutes 10.8 minutes 0 minutes Air kerma at the reference point (Ka,r) 976 mGy 9 76 mGy 0 mGy DLP 1,157 mGycm 1,157 mGycm 0 mGycm Resolved Problems Problem Noted Date Diagnosed Date Resolved Date Alzheimer's dementia 01/21/2023 024 Assessment & Plan (04/27/2023 12:39 PM CDT): Worsening, not well controlled; patient reports worsening word-finding difficulty with concentration and focus; patient reports some stories which are inaccurate (patient discussed driving car recently which reported did not happen) SLUMS today demonstrating findings consistent with dementia Will get MRI brain for cognition to evaluate potential causes Patient scheduled to follow-up Neurology; patient to follow-up with [facility] memory diagnostics clinic for more complete testing and evaluation to confirm diagnosis Assessment & Plan (01/21/2023 4:57 PM CDT): -at baseline mental status per family Moderate early onset Alzheim er's dementia without behavioral disturbance, psychotic disturbance, mood disturbance, or anxiety 01/19/2023 04/20/2024 Assessment & Plan (02/11/2024 4:48 PM CDT): Stable, continued progression with forgetfulness and confusion; generally well controlled; continues to live at home with family Continue memantine 10 mg daily Assessment & Plan (12/24/2023 4:35 PM CDT): Patient is responding appropriately to all questions. Assessment & Plan (11/17/2023 4:08 PM CDT): Moderate disease, advancing; unclear if related to Alzheimer's disease verses cerebral aneurysms Will continue to monitor closely for advancement; patient remains safe at home, cared for by Continue memantine 10 mg daily Assessment & Plan (02/03/2023 5:55 PM CDT): Prior diagnosis; no current workup and no current medications Loss of timing, worsened some days and other Forgets a lot, occasionally refers to does father Memory is worsening, patient is withdrawn and does not want to interact Start venlafaxine 75 mg b.i.d. Assessment & Plan (02/02/2023 5:05 PM CDT): Stable, well controlled; however patient reports she would like to continue upon antidepressants that have been previously discontinued Continue venlafaxine 150 mg daily; patient does not tolerate extended release, requires in immediate release Continue trazodone 150 mg nightly for insomnia
--- OUTSIDE RECORDS SUMMARY | 2024-08-11 14:04 | XMS_ITS | Encounter Summary ---
Author Organization [facility] Address [address] [place] [address] Care Team Providers Care Commercial Collector Name Role Phone Hakeem Salcido MD Primary Care Provider [phone] Reason for Visit * Reason Onset Date Comments Medical Question/Miscellaneous 08/11/2024 Encounter Details Date Type Department Care Team (Late st Contact Info) Description 08/11/2024 Telephone Family [facility] [address] [place] [address] Hakeem Salcido MD [address] [place] [id number] Medical Question/Miscellaneous Social History Tobacco Use Types Packs/Day Years Used Date Smoking Tobacco: Former Cigarettes Smokeless Tobacco: Never PHQ-2 Answer Date Recorded PHQ-2 Total Score (If total score is 3 or more points, staff should administer the PHQ-9) 2 05/31/2024 Personal Safety Answer Date Recorded Have you ever been in or are you currently in a harmful physical or emotional relationship or is someone making you feel afraid or unsafe? Denies 08/09/2024 Comments Unknown Sex and Gender Information Value Date Recorded Sex Assigned at Not on file Legal Sex Female 2:27 PM CDT Gender Identity Not on file Sexual Orientation Not on file documented as of this encounter Miscellaneous Notes * Telephone Encounter - Lexie Alcala MA - 08/11/2024 1:49 PM CST FYI Y PLAN SALESPERSON * Telephone Encounter - Viki Vallecillo - 08/11/2024 12:55 PM CST Medical Question/Miscellaneous Caller???s Concern: Daughter in law, HIPAA Verified, calls and states patient was seen in the emergency room [facility] 08/09/24 and diagnosed with Covid. Patient was discharged and went home. Caller reportspatient is in route to [facility] at this time via ambulance as patient became unresponsive and aspirated. Caller wants to make sure PCP is aware of status of patient. Does message need to be routed? Yes-Action Needed Y PLAN SALESPERSON documented in this encounter Plan of Treatment Not on file documented as of this encounter Visit Diagnoses Not on filedocumented in this encounter Additional Health Concerns Infection Onset Date Last Indicated Resolved Time COVID19 08/09/2024 08/09/2024 documented as of this encounter Care Teams Commercial Collector Relationship Specialty Start Date End Date Hakeem Salcido MD [address] [place] [address] PCP - General Family Medicine 12/12/22 documented as of this encounter
--- OUTSIDE RECORDS SUMMARY | 2024-08-11 14:04 | XMS_ITS | Referral Summary ---
Author Organization [facility] Address [address] [place] [address] Phone Care Team Providers Care Top Loader Name Role Phone Hakeem Salcido MD Primary Care Provider [phone] Encounters Date Type Department Care Team Description 08/11/2024 Telephone [facility] [address] [phone] Hakeem Salcido MD Medical Question/Miscellaneous 08/09/2024 12:10 PM SURVEYOR MINE - 08/09/2024 3:27 PM SURVEYOR MINE Emergency [facility] Emergency Department [address] [place] [address] Tate Marc MD COVID (Primary Dx) Discharge Disposition: Discharge to home or self care 08/09/2024 Nurse Triage [facility] [address] [phone] Hakeem Salcido MD 08/01/2024 11:00 AM SURVEYOR MINE Procedure visit [facility] at [address] [place] [address] Rula Calvillo Au.D. Sensorineural hearing loss (SNHL), bilateral (Primary Dx); Sensorineural hearing loss (SNHL) of both ears 08/01/2024 10:00 AM SURVEYOR MINE Office Visit [facility] - [address] [place] [address] Brenda Remy DO Sensorineural hearing loss (SNHL) of both ears 06/28/2024 12:10 PM SURVEYOR MINE Lab [facility] [address] [place] [address] Vitamin B12 deficiency; Vitamin B6 deficiency 06/28/2024 10:30 AM SURVEYOR MINE Office Visit [facility] [address] [place] [address] Reggie Fam MD Numbness and tingling of both lower extremities (Primary Dx); Moderate Lewy body dementia with mood disturbance (HCC); Vitamin B12 deficiency; Vitamin B6 deficiency; Seizure disorder (CMS/HCC) (HCC) 06/20/2024 10:30 AM SURVEYOR MINE Clinical Support [address] [place] [address] Encounter for care related to Port-a-Cath (Primary Dx); Waldenstrom's macroglobulinemia 06/20/2024 9:45 AM SURVEYOR MINE Lab [address] [place] [address] Waldenstroms macroglobulinemia (Primary Dx); Waldenstrom's macroglobulinemia 06/20/2024 10:15 AM SURVEYOR MINE Office Visit [facility] [address] [place] [address] [address] [place] [address] David Hinton MD Encounter for care related to Port-a-Cath (Primary Dx); Waldenstrom's macroglobulinemia 06/17/2024 Telephone [facility] [address] [place] [address] Medical [address] [place] [address] David Hinton MD 05/31/2024 11:15 AM SURVEYOR MINE Office Visit [facility] [address] [address] Hakeem Salcido MD Medicare annual wellness visit, subsequent (Primary Dx); Sensorineural hearing loss (SNHL) of both ears; Hypertension, essential; Neuropathy (CMS/HCC); Seizure disorder (CMS/HCC) (HCC); Acquired hypothyroidism; Mild episode of recurrent major depressive disorder (HCC); Vascular dementia with behavior disturbance ([facility]) from Last 3 Months Allergies Active Allergy Reactions Criticality Noted Date Comments Codeine Other (See comments) Low 10/01/2023 Eszopiclone Other (See comments) Low 10/01/2023 Meperidine Other (See comments) Low 10/01/2023 Metoclopramide Other (See comments) Low 10/01/2023 Propoxyphene Hcl Other (See comments) Low 4 Medications nitroglycerin (NITROSTAT) 0.[address] 1 tablet (0.4 mg total) under the tongue every 5 (five) minutes as needed for chest pain Active hydrALAZINE (APRESOLINE) 25 mg tabletIndicatio ns:hypertension ,if systolic BP >160 (home dose) Take 1 tablet (25 mg total) by mouth 3 (three) times a day 90 tablet 3 Active carvediloL (COREG) 12.5 mg tablet Take 1 tablet (12.5 mg total) by mouth 2 (two) times a day with meals 180 tablet 3 3 Active venlafaxine (EFFEXOR) 75 mg tablet Take 3 tablets (225 mg total) by mouth orthopedic mechanic before breakfast 270 tablet 4 10/28/19 25 Active aspirin 81 mg chewable tablet Take 1 tablet (81 mg total) by mouth daily 30 tablet 4 10/28/19 25 Active amLODIPine (NORVASC) 10 mg tablet Take 1 tablet (10 mg total) by mouth daily 90 tablet 4 01/18/20 25 Active buPROPion SR (WELLBUTRIN SR) 150 mg 12 hr tablet Take 1 tablet (150 mg total) by mouth daily 90 tablet 4 01/20/20 25 Active folic acid 20 mg capsule Take by mouth daily Active vitamin B complex capsule Take 1 capsule by mouth daily Active estradioL (ESTRACE) 2 mg tablet TAKE 1 TABLET BY MOUTH EVERY DAY 100 tablet 1 4 Active traZODone (DESYREL) 300 mg tablet Take 1 tablet (300 mg total) by mouth nightly Active levETIRAcetam (KEPPRA) 1,000 mg tablet Take 1 tablet (1,000 mg total) by mouth 2 (two) times a day 180 tablet 3 4 04/20/20 25 Active dicyclomine (BENTYL) 20 mg tablet TAKE 1 TABLET BY MOUTH EVERY 6 HOURS 360 tablet 2 4 Active loperamide (IMODIUM) 2 mg capsule Take 1 capsule (2 mg total) by mouth 2 (two) times a day Active gabapentin (NEURONTIN) 300 mg capsule TAKE 1 CAPSULE BY MOUTH IN THE MORING, 1 CAP AT LUNCH, AND TAKE 2 CAPSULES AT BEDTIME 400 capsule 1 4 Active memantine (NAMENDA) 10 mg tabletIndicatio ns: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 180 tablet 3 5 Active Active Problems Problem Noted Date Diagnosed Date Sensorineural hearing loss (SNHL) of both ears 0 08/02/2024 Assessment & Plan (08/02/2024 9:09 AM SURVEYOR MINE): Hearing test today - moderate hearing loss, hearing aids recommended Numbness and tingling of both lower extremities 06/28/2024 Moderate Lewy body dementia with mood disturbanc e 04/20/2024 Visual hallucination 04/20/2024 Vascular dementia with behavior disturbance 03/2024 Assessment & Plan (06/14/2024 4:11 PM SURVEYOR MINE): Stable, secondary to history of cerebral aneurysms, [...] 01/21/2023 Assessment & Plan (06/14/2024 4:10 PM SURVEYOR MINE): Stable, well controlled, blood pressure at goal; [...] soft -will keep holding BB as sinu antonina, asymptomatic Neuropathy 01/21/2023 Assessment & Plan (06/14/2024 4:10 PM SURVEYOR MINE): Stable, generally well controlled, does have pain [...] PM CDT): -continue home gabapentin Seizure disorder ([facility]) 01/21/2023 Assessment & Plan (06/14/2024 4:10 PM SURVEYOR MINE): Stable, well controlled; no episodes since adjustment [...] 01/21/2023 Assessment & Plan (06/14/2024 4:11 PM SURVEYOR MINE): Stable, well controlled, no major changes to [...] 01/21/2023 Assessment & Plan (06/14/2024 4:11 PM SURVEYOR MINE): Stable, mood goes up and down; continue venlafaxine 225 mg daily Assessment & Plan (12/24/2023 4:34 PM CDT): Discussed plan of care with patient and her [id number]. We will add bupropion SR 150 mg once daily in the morning. Patient lives with [id number] and her son who are available to [...] doctor, encounter for 01/19/2023 Falling 11/07/2021 Aneurysm ([facility]) 08/29/2018 Assessment & Plan (11/17/2023 4:09 PM CDT): No rupture; worsening cognitive function; multifocal infarcts on imaging Follows with Neurosurgery, scheduled for angiogram Resolved Problems Problem Noted Date Diagnosed Date [...] to follow-up Neurology; patient to follow-up with [facility] for more complete testing [...] Continue trazodone 150 mg nightly for insomnia Immunizations Name Administration Dates Next Due Influenza, Quadrivalent, Hig h Dose, Preservative Free, Intrr 05/08/2023 Influenza, Quadrivalent, Spl it, Intramuscular 04/25/2020 Influenza, Trivalent, Cell Culture-based MDCK, Preservative Free, Antibiotic Free, Intramuscular 04/26/2018,03/17/2017 Influenza, Trivalent, High D ose, Split, Preservative Free, Intramuscular 04/04/2019,05/25/2017 Influenza, Trivalent, IM (MDV) 6,02/28/2015,05/24/2012,03/25 Influenza, Trivalent, Preser vative Free, Intramuscular 04/18/2016 Influenza, Unspecified 05/05/2024,2022,04/27/2023(Defer red: Patient Refused),07/13/2022(Deferred: Patient Refused),07/13/2021(Deferred: Patient Refused),06/11/2021,04/25/2020, 019,04/26/2018,04/24/2017,03/17/2017,1 ,02/28/2015,05/24/2012,2009 MMR 12/17/2018 Moderna SARS-CoV-2 Monovalen t Vaccination (12+ YRS) 07/15/2021,10/15/2020,09/13/2020 PPD TEST 09/18/2021 Pneumococcal Conjugate 7-Valent 12/07/2015,03/20 Pneumococcal Conjugate PCV 13 11/07/2015 Pneumococcal Polysaccharide PPV23 05/19/2017,08/2008 RSV Vaccine, Pref, Recombina nt, Subunit, Adjuvanted, PF, IM (Arexvy) 05/08/2023 Sars-cov-2 Covid-19 Mrna, Bi valent, Original/omicron Ba.1 05/05/2024 Sars-cov-2 Covid-19 Mrna, Bi valent, Original/omicron Ba.1, A 05/08/2023 ZOSTER Recombinant 04/19/2019,02/15/2019 Social History Tobacco Use Types Packs/Day Years Used Date Smoking Tobacco: Former Cigarettes Smokeless Tobacco: Never Tobacco Cessation:Counseling Given: Not Answered PHQ-2 Answer Date Recorded PHQ-2 Total Score [...] on file Sexual Orientation Not on file Last Filed Vital Signs Vital Sign Reading Time Taken Comments Blood Pressure 122/82 08/09/2024 11:47 AM SURVEYOR MINE Pulse 71 08/09/2024 11:47 AM SURVEYOR MINE Temperature 37 ??C (98.6 ??F) 08/09/2024 11:47 AM SURVEYOR MINE Respiratory Rate 16 08/09/2024 11:47 AM SURVEYOR MINE Oxygen Saturation 99% 08/09/2024 11:47 AM SURVEYOR MINE Inhaled Oxygen Concentration - - Weight 49.4 kg (109 lb) 08/09/2024 11:47 AM SURVEYOR MINE Height 160 cm (5' 3 ) 08/09/2024 11:47 AM SURVEYOR MINE Body Mass Index 19.31 08/09/2024 11:47 AM SURVEYOR MINE Plan of Treatment Not on file Medical Devices Implanted Type Area Principal Technical Specialist Device Identifier Shelf Expiration Date Model / Serial / Lot Yasargil L7 Brain Description:Static magnetic field of 3-Sharon or less ?? Titanium clip - Maximum spatial gradient magnetic field of 3000 Gauss/cm (30.0 T/m) or less ?? Phynox clip - Maximum spatial gradient magnetic field of 1,500-Gauss/cm (15.0 T/m) or less ?? Maximum MR system reported, whole body averaged ABBIE of4-W/kg (First Level Controlled Operating Mode) Yasargil L7 5.7mm Brain Description:Static magnetic field of 3-Sharon or less Titanium clip - Maximum spatial gradient magnetic field of 3000 Gauss/cm (30.0 T/m) or lessPhynox clip - Maximum spatial gradient magnetic field of 1,500-Gauss/cm (15.0 T/m) or less Maximum MR system reported, whole body averaged ABBIE of4-W/kg (First Level Controlled Operating Mode) Yasrgil L7 6.2 Mm Brain Description:Static magnetic field of 3-Sharon or less Titanium clip - Maximum spatial gradient magnetic field of 3000 Gauss/cm (30.0 T/m) or lessPhynox clip - Maximum spatial gradient magnetic field of 1,500-Gauss/cm (15.0 T/m) or less Maximum MR system reported, whole body averaged ABBIE of4-W/kg (First Level Controlled Operating Mode) Pipeline X2 Brain Description:Static magnetic field of 3 Sharon or less. ?? Spatial gradient field of 720 Gauss/cm or less. ?? Maximum [id number] specific absorption rate (ABBIE) of 4.0 W/kg for 15 minutes of scanning Procedures Procedure Name Priority Date/Time Associated Diagnosis Comments XR CHEST PA LATERAL 2 VIEWS ED 08/09/2024 1:[address] ABDOMEN PELVIS W CONTRAST ED 08/09/2024 1:31 PM SURVEYOR MINE POCT CREATININE - DEVICE Routine 08/09/2024 1:03 PM SURVEYOR MINE EGFR STAT 08/09/2024 12:55 PM SURVEYOR MINE DIFFERENTIAL AUTO Routine 08/09/2024 12: 55 PM SURVEYOR MINE LIPASE STAT 08/09/2024 12:55 PM SURVEYOR MINE COMPREHENSIVE METABOLIC PANEL STAT 08/09/2024 12:55 PM SURVEYOR MINE CBC WITH AUTO DIFFERENTIAL Routine 08/09/2024 12:55 PM SURVEYOR MINE INFLUENZA A/B, RSV, AND COVID-19 PCR Routine 08/09/2024 12:55 PM SURVEYOR MINE AUDIOGRAM Routine 08/01/2024 11:00 AM SURVEYOR MINE Sensorineural hearing loss (SNHL), bilateral VITAMIN B12 Routine 06/28/2024 12:26 PM SURVEYOR MINE Vitamin B12 deficiency VITAMIN B6 Routine 06/28/2024 12:26 PM SURVEYOR MINE Vitamin B6 deficiency FOLATE Routine 06/28/2024 12:26 PM SURVEYOR MINE Vitamin B12 deficiency SURGICAL PATHOLOGY Routine 06/20/2024 10 :05 AM SURVEYOR MINE PROTEIN ELECTROPHORESIS, WITH REFLEX, SERUM Routine 06/20/2024 10:05 AM SURVEYOR MINE Waldenstrom's macroglobulinemia IMMUNOGLOBULIN FREE LIGHT CHAINS Routine 06/20/2024 10:05 AM SURVEYOR MINE Waldenstrom's macroglobulinemia DIFFERENTIAL AUTO Routine 06/20/2024 10: 05 AM SURVEYOR MINE Waldenstroms macroglobulinemia CBC WITH AUTO DIFFERENTIAL Routine 06/20/2024 10:05 AM SURVEYOR MINE Waldenstroms macroglobulinemia HM DNA STOOL Routine 02/24/2023 from Last 3 Months or Most Recently Relevant to Health Maintenance Results * XR Chest PA Lateral 2 Views (08/09/2024 1:37 PM SURVEYOR MINE) Anatomical Region Laterality Modality Body, Chest N/A Computed Radiogr aphy 08/09/2024 1:49 PM SURVEYOR MINE Impressions 08/09/2024 2:36 PM SURVEYOR MINE The current study is compared with the prior radiograph dated 01/20/2023. Port projects over right hemithorax, with distal catheter tip overlying superior vena cava. ??Cervical spinal fixation hardware and surgical clips project over the neck. No consolidation, pleural effusion, or pneumothorax. Healed hilar granulomatous disease. Dictated by: Roma Garcia M.D. The radiology attending physician has personally reviewed this study, and had reviewed and/or edited this written report and agrees with it. Electronically signed by: Josselyn Cruz M.D. [facility] 08/09/2024 2:36 PM SURVEYOR MINE EXAMINATION: 2 view chest radiograph Procedure Note Josselyn Cruz MD - 08/09/2024 EXAMINATION: 2 view chest radiograph IMPRESSION: The current study is compared with the prior radiograph dated 01/20/2023. Port projects over right hemithorax, with distal catheter tip overlying superior vena cava. Cervical spinal fixation hardware and surgical clips project over the neck. No consolidation, pleural effusion, or pneumothorax. Healed hilar granulomatous disease. Dictated by: Roma Garcia M.D. The radiology attending physician has personally reviewed this study, and had reviewed and/or edited this written report and agrees with it. Electronically signed by: Josselyn Cruz M.D. us Tate Marc MD IMG XR PROCEDURES Final Re sult * CT Abdomen Pelvis W Contrast (08/09/2024 1:31 PM SURVEYOR MINE) Anatomical Region Laterality Modality Body N/A Computed Tomogra phy 08/09/2024 2:05 PM SURVEYOR MINE Impressions 08/09/2024 2:36 PM SURVEYOR MINE 1. ??No definite acute abdominal or pelvic process. 2. ??Biliary ductal dilatation, likely related to reservoir effect; however, given peripheral extension, recommend correlation with liver function tests. 3. ??Short-segment sigmoid wall thickening, favored to be related to peristalsis; correlate with recent or upcoming screening colonoscopy. 4. ??Bilateral cystic adnexal lesions, likely benign. Recommend comparison with outside CT Abdomen/Pelvis (03/25/2020) to document stability. Dictated by: Roma Garcia M.D. The radiology attending physician has personally reviewed this study, and had reviewed and/or edited this written report and agrees with it. Electronically signed by: Josselyn Cruz M.D. Narrative 08/09/2024 2:36 PM SURVEYOR MINE EXAMINATION: ??Computed tomography of the abdomen and pelvis with intravenous contrast PROVIDED HISTORY: 74-year-old female with one week of epigastric abdominal pain. TECHNIQUE: ??Transaxial computed tomographic images of the abdomen and pelvis ??were obtained with intravenous contrast according to the standard protocol after the uneventful administration of 69 mL Opti-Ray 350 intravenous contrast. COMPARISON: No relevant comparison examination is available. Same-day chest radiograph was reviewed. FINDINGS: ?? No pneumonic consolidation or pleural effusion of the imaged lung bases. No suspicious hepatic lesions. ??Postsurgical changes of cholecystectomy with biliary ductal dilatation extending peripherally in the left lateral hepatic section, possibly representing reservoir effect. ??Punctate granulomas are present within the spleen, likely related to old granulomatous disease. ??Unremarkable pancreas and adrenal glands. The kidneys enhance symmetrically, without hydronephrosis. ??The urinary bladder is normal. Normal caliber of the small and large bowel without evidence of obstruction. Short segment wall-thickening of the sigmoid colon, which may be related to peristalsis. Colonic diverticulosis without diverticulitis. No adjacent inflammatory stranding. No ascites or pneumoperitoneum. The uterus is absent. Bilateral simple cystic adnexal lesions; largest left adnexal cystic structure measures 2.1 cm. Calcified atherosclerosis of the aorta. There are no suspicious lytic or blastic osseous lesions. ??Posterior decompression and instrumented spinal fusion of L4-S1. ??Lumbar degenerative disc disease. Procedure Note Josselyn Cruz MD - 08/09/2024 EXAMINATION: Computed tomography of the abdomen and pelvis with intravenous contrast PROVIDED HISTORY: 74-year-old female with one week of epigastric abdominal pain. TECHNIQUE: Transaxial computed tomographic images of the abdomen and pelvis were obtained with intravenous contrast according to the standard protocol after the uneventful administration of 69 mL Opti-Ray 350 intravenous contrast. COMPARISON: No relevant comparison examination is available. Same-day chest radiograph was reviewed. FINDINGS: No pneumonic consolidation or pleural effusion of the imaged lung bases. No suspicious hepatic lesions. Postsurgical changes of cholecystectomy with biliary ductal dilatation extending peripherally in the left lateral hepatic section, possibly representing reservoir effect. Punctate granulomas are present within the spleen, likely related to old granulomatous disease. Unremarkable pancreas and adrenal glands. The kidneys enhance symmetrically, without hydronephrosis. The urinary bladder is normal. Normal caliber of the small and large bowel without evidence of obstruction. Short segment wall-thickening of the sigmoid colon, which may be related to peristalsis. Colonic diverticulosis without diverticulitis. No adjacent inflammatory stranding. No ascites or pneumoperitoneum. The uterus is absent. Bilateral simple cystic adnexal lesions; largest left adnexal cystic structure measures 2.1 cm. Calcified atherosclerosis of the aorta. There are no suspicious lytic or blastic osseous lesions. Posterior decompression and instrumented spinal fusion of L4-S1. Lumbar degenerative disc disease. IMPRESSION: 1. No definite acute abdominal or pelvic process. 2. Biliary ductal dilatation, likely related to reservoir effect; however, given peripheral extension, recommend correlation with liver function tests. 3. Short-segment sigmoid wall thickening, favored to be related to peristalsis; correlate with recent or upcoming screening colonoscopy. 4. Bilateral cystic adnexal lesions, likely benign. Recommend comparison with outside CT Abdomen/Pelvis (03/25/2020) to document stability. Dictated by: Roma Garcia M.D. The radiology attending physician has personally reviewed this study, and had reviewed and/or edited this written report and agrees with it. Electronically signed by: Josselyn Cruz M.D. Tate Marc MD IMG CT PROCEDURES Final Re sult * POCT creatinine (08/09/2024 1:03 PM SURVEYOR MINE) Pathologist [facility] Creatinine POC 0.9 0.6 - 1.1 mg/dL Blood 08/09/2024 1:03 PM SURVEYOR MINE 08/09/2024 1:03 PM SURVEYOR MINE Tate Marc MD LAB POCT ORDERABLES - KEATON CE Final Result [facility] One [facility] [place] [address] * (ABNORMAL) Influenza A/B, RSV, and COVID-19 PCR Nasopharyngeal (08/09/2024 12:55 PM SURVEYOR MINE) [facility] COVID-19 RNA Positive(A) Negative [facility] Influenza A RNA Negative Negative [facility] Influenza B RNA Negative Negative [facility] RSV RNA Negative Negative [facility] Comment: Interpretive data: Testing performed by [facility] ([phone]). This test is performed using the Slide Xpert Xpress CoV-2/Flu/RSV plus assay. This is a multiplex, real-time reverse transcriptase PCR assay intended for the qualitative detection of nucleic acid from SARS-CoV-2, influenza A, influenza B, and respiratory syncytial virus. This assay has been cleared by the [place] Food and Drug administration. The performance characteristics have been verified by the [facility]. ??Results must be considered in the clinical context, and a negative result does not rule out infection. Interpretive Data last revised 2023 Nasopharyngeal 08/09/2024 12 :55 PM SURVEYOR MINE 08/09/2024 1:07 PM SURVEYOR MINE Narrative [facility] - 08/09/2024 1:50 PM SURVEYOR MINE Is the Patient experiencing symptoms consistent with COVID?->Unknown us Manasa Carranza MD LAB MICROBIOLOGY - GENERA L ORDERABLES Final Result Performing Organization Address [facility] Co de Phone Number CARMEN COTTER [facility] [place] [address] BJ * eGFR (08/09/2024 12:55 PM SURVEYOR MINE) eGFR 73 >=60 mL/min/1. 73 m2 Comment: Interpretive Data Reference Interval Normal ?>/= 90 mL/min/1.73m2 Mildly decreased* ? 60 - 89 mL/min/1.73m2 Mildly to moderately decreased ?45 - 59 mL/min/1.73m2 Moderately to severely decreased ??30 - 44 mL/min/1.73m2 Severely decreased ?15 - 29 mL/min/1.73m2 Kidney Failure ?< 15 ??mL/min/1.73m2 *Relative to young adult level Estimated glomerular filtration rate is determined by the 2020 CKD-EPI equation recommended by the National Kidney Foundation (A Unifying Approach to GFR Estimation: Recommendations of the NKF-ASK Task Force on Reassessing the Inclusion of Race in Diagnosing Kidney Disease, JASN 2020). The CKD-EPI equation should not be used for patients with unstable renal function and has not been validated in children and those over 70. Current interpretive data was last reviewed 2021. Blood 08/09/2024 12:5 5 PM SURVEYOR MINE 08/09/2024 1:10 PM SURVEYOR MINE us Tate Marc MD LAB BLOOD ORDERABLES Final Result Performing Organization Address [facility] de Phone Number CARMEN COTTER Mikayla [facility] Department [place] [address] * (ABNORMAL) Differential, auto (08/09/2024 12:55 PM SURVEYOR MINE) Neutrophil abs 5.8 1.5 - 6.5 K/cumm Imm gran abs 0.0 0.0 - 0.1 K/cumm [facility] Lymphocyte abs 0.7(L) 0.8 - 3.3 K/cumm [facility] Monocyte abs 0.7 0.2 - 0.8 K/cumm [facility] Eosinophil abs 0.0 0.0 - 0.5 K/cumm [facility] Basophil abs 0.1 0.0 - 0.1 K/cumm [facility] Neutrophil pct 79.4 % [facility] Comment: Interpretive Data Percent cell count reference ranges are not reported, since discordance with absolute values may lead to misinterpretation of CBC data. Current Interpretive Data was last revised on 2017. Imm gran pct 0.4 % [facility] Comment: Interpretive Data Percent cell count reference ranges are not reported, since discordance with absolute values may lead to misinterpretation of CBC data. Current Interpretive Data was last revised on 2017. Lymphocyte pct 9.2 % [facility] Comment: Interpretive Data Percent cell count reference ranges are not reported, since discordance with absolute values may lead to misinterpretation of CBC data. Current Interpretive Data was last revised on 2017. Monocyte pct 9.6 % [facility] Comment: Interpretive Data Percent cell count reference ranges are not reported, since discordance with absolute values may lead to misinterpretation of CBC data. Current Interpretive Data was last revised on 2017. Eosinophil pct 0.4 % [facility] Comment: Interpretive Data Percent cell count reference ranges are not reported, since discordance with absolute values may lead to misinterpretation of CBC data. Current Interpretive Data was last revised on 2017. Basophil pct 1.0 % [facility] Comment: Interpretive Data Percent cell count reference ranges are not reported, since discordance with absolute values may lead to misinterpretation of CBC data. Current Interpretive Data was last revised on 2017. Blood 08/09/2024 12:5 5 PM SURVEYOR MINE 08/09/2024 1:10 PM SURVEYOR MINE us Tate Marc MD LAB BLOOD ORDERABLES Final Result [facility] [place] [address] * (ABNORMAL) CBC with auto differential (08/09/2024 12:55 PM SURVEYOR MINE) Pathologist [facility] [place] WBC 7.3 3.8 - 9.9 K/cumm Hgb 13.6 11.9 - 15.5 g/dL [facility] Hct 38.6 35.6 - 45.5 % [facility] Plt 216 150 - 400 K/cumm [facility] MPV 10.8 9.1 - 12.3 fL [facility] RBC 4.05 3.90 - 5.20 M/cumm [facility] MCV 95.3 81.3 - 96.4 fL [facility] MCH 33.6(H) 27.1 - 33.3 pg [facility] MCHC 35.2 32.3 - 35.7 g/dL [facility] RDW CV 12.3 11.1 - 14.9 % [facility] RDW SD 42.5 35.7 - 48.1 fL [facility] NRBC abs 0.00 0.00 - 0.01 K/cumm [facility] Blood 08/09/2024 12:5 5 PM SURVEYOR MINE 08/09/2024 1:10 PM SURVEYOR MINE us Tate Marc MD LAB BLOOD ORDERABLES Final Result [facility] Department [place] [address] * Lipase (08/09/2024 12:55 PM SURVEYOR MINE) [facility] Lipase 14 10 - 99 Units/L Blood 08/09/2024 12:5 5 PM SURVEYOR MINE 08/09/2024 1:10 PM SURVEYOR MINE Tate Marc MD LAB BLOOD ORDERABLES Final Result [facility] [place] [address] * Comprehensive metabolic panel (08/09/2024 12:55 PM SURVEYOR MINE) Sodium 139 135 - 145 mmol/L Potassium, pl 3.9 3.3 - 4.9 mmol/L [facility] Chloride 100 97 - 110 mmol/L [facility] CO2 29 22 - 32 mmol/L [facility] Anion gap 10 2 - 15 mmol/L [facility] BUN 7 6 - 25 mg/dL [facility] Creatinine 0.83 0.60 - 1.10 mg/dL [facility] Glucose 103 70 - 199 mg/dL [facility] Comment: Interpretive Data Fasting glucose >/= 126 mg/dl is diagnostic for diabetes. ?? Fasting is defined as no caloric intake for at least 8 hours. Fasting glucose between 100 mg/dl to 125 mg/dl is diagnostic of prediabetes. In a patient with classic symptoms of hyperglycemia or hyperglycemic crisis, a random glucose >/= 200 mg/dl is diagnostic for diabetes. In the absence of unequivocal hyperglycemia, results should be confirmed by repeat testing. The classification and Diagnosis of Diabetes Diabetes Care 202; 46: S19-S40. Current interpretive data was last revised 2022. Calcium 9.2 8.5 - 10.3 mg/dL [facility] Bilirubin, total 0.2 0.1 - 1.2 mg/dL [facility] Protein, pl 6.6 6.5 - 8.5 g/dL [facility] Albumin 4.2 3.5 - 5.0 g/dL [facility] Alk phos 46 40 - 130 Units/L [facility] ALT 9 7 - 45 Units/L [facility] AST 20 10 - 45 Units/L [facility] Blood 08/09/2024 12:5 5 PM SURVEYOR MINE 08/09/2024 1:10 PM SURVEYOR MINE Tate Marc MD LAB BLOOD ORDERABLES Final Result [facility] [place] [address] * AUDIOGRAM (08/01/2024 11:00 AM SURVEYOR MINE) Narrative Rula Calvillo Au.D. - 08/01/2024 11:00 AM SURVEYOR MINE Rula Calvillo Au.D. ? 08/01/2024 ??1:17 PM Audiogram Performed by: Rula Calvillo Au.D. Authorized by: Brenda Remy, DO ?? Brenda Remy DO AUDIOLOGY SERVICES ORDERABLE S Final Result * Vitamin B6 (06/28/2024 12:26 PM SURVEYOR MINE) Pyridoxal phosphate (Vit B6) 13 5 - 50 mcg/L [place] [facility] Comment: ADDITIONAL INFORMATION This test was developed and its performance characteristics determined by [facility] in a manner consistent with CLIA requirements. This test has not been cleared or approved by the U.S. Food and Drug Administration. Test Performed by: [facility] [place] [address] Ethylbenzene Oxidizer: Moses Hummel Ph.D.; CLIA# [id number] Blood 06/28/2024 12:2 6 PM SURVEYOR MINE 06/28/2024 12:32 PM SURVEYOR MINE us Reggie Fam MD LAB BLOOD ORDERABLES Fi nal Result [facility] ([place]) [facility] [place] [address] [place] [facility] * Folate (06/28/2024 12:26 PM SURVEYOR MINE) Folic acid >20.0 >=5.0 ng/mL Comment:Slightly Hemolyzed S pecimen. Results may be affected. Blood 06/28/2024 12:2 6 PM SURVEYOR MINE 06/28/2024 12:32 PM SURVEYOR MINE Reggie Fam MD LAB BLOOD ORDERABLES Fi nal Result [facility] ([place]) 1 [facility] Department [place] [address] * Vitamin B12 (06/28/2024 12:26 PM SURVEYOR MINE) Vitamin B12 728 230 - 1,250 pg/mL Blood 06/28/2024 12:2 6 PM SURVEYOR MINE 06/28/2024 12:32 PM SURVEYOR MINE Reggie Fam MD LAB BLOOD ORDERABLES Fi nal Result Performing Organization Address City/[facility] Co de Phone Number [facility] ([place]) 1 [facility] Department [place] [address] * Differential, auto (06/20/2024 10:05 AM SURVEYOR MINE) Neutrophil abs 4.2 1.5 - 6.5 K/cumm Comment:Testing performed by : [facility] C[facility] [address], Medical Office [facility] [address], [place] [address] Imm gran abs 0.0 0.0 - 0.1 K/cumm [facility] ([place]) Comment:Testing performed by : [facility] [address], Medical Office [facility] [address], [place] [address] Lymphocyte abs 1.1 0.8 - 3.3 K/cumm [facility] ([place]) Comment:Testing performed by : [facility] [address], Medical Office [facility] [address], [place] [address] Monocyte abs 0.5 0.2 - 0.8 K/cumm [facility] ([place]) Comment:Testing performed by : [facility] C[facility] [address], Medical Office [facility] [address], [place] [address] Eosinophil abs 0.1 0.0 - 0.5 K/cumm [facility] ([place]) Comment:Testing performed by : [facility] [address], Medical Office [facility] B [address], [place] [address] Basophil abs 0.0 0.0 - 0.1 K/cumm [facility] ([place]) Comment:Testing performed by : [facility] [address], Medical Office [facility] [address], [place] [address] Neutrophil pct 70.3 % [facility] ([place]) Comment: Interpretive Data Percent cell count reference ranges are not reported, since discordance with absolute values may lead to misinterpretation of CBC data. Current Interpretive Data was last revised on 2022. Testing performed by: [facility] [address], Medical Office [facility] B [address], [place] [address] Imm gran pct 0.2 % [facility] ([place]) Comment: Interpretive Data Percent cell count reference ranges are not reported, since discordance with absolute values may lead to misinterpretation of CBC data. Current Interpretive Data was last revised on 2022. Testing performed by: [facility] [address], Medical Office [facility] B [facility] [address], [place] [address] Lymphocyte pct 18.7 % [facility] ([place]) Comment: Interpretive Data Percent cell count reference ranges are not reported, since discordance with absolute values may lead to misinterpretation of CBC data. Current Interpretive Data was last revised on 2022. Testing performed by: [facility] [address], Medical Office [facility] B [facility] [address], [place] [address] Monocyte pct 7.8 % [facility] ([place]) Comment: Interpretive Data Percent cell count reference ranges are not reported, since discordance with absolute values may lead to misinterpretation of CBC data. Current Interpretive Data was last revised on 2022. Testing performed by: [facility] [address], Medical Office [facility] [address], [place] [address] Eosinophil pct 2.3 % [facility] ([place] Comment: Interpretive Data Percent cell count reference ranges are not reported, since discordance with absolute values may lead to misinterpretation of CBC data. Current Interpretive Data was last revised on 2022. Testing performed by: [facility] [address], Medical Office [facility] [address], [place] [address] Basophil pct 0.7 % [facility] ([place]) Comment: Interpretive Data Percent cell count reference ranges are not reported, since discordance with absolute values may lead to misinterpretation of CBC data. Current Interpretive Data was last revised on 2022. Testing performed by: [facility] C[facility] [place], [address] [facility] , Medical Office [address]ld[address], [place] [address] Blood 06/20/2024 10:0 5 AM SURVEYOR MINE 06/20/2024 10:05 AM SURVEYOR MINE us David Hinton MD LAB BLOOD ORDERABLES Marisol l Result [facility] ([place]) 1 [facility] Department [place] [address] * Immunoglobulin free light chains (06/20/2024 10:05 AM SURVEYOR MINE) Chevak/Lambda ratio 1.40 0.26 - 1.65 Comment:Testing performed by : [facility], [address] [place] [address]., [id number] Chevak free light chain 1.49 0.33 - 1.94 mg/dL [facility] ([place]) Comment: Interpretive Data The Mylene Ig Chevak FLC assay procedure was used. Results from different manufacturers or methods may not be comparable. Serial testing should be performed using the same method. Testing performed by: [facility], [address] [place] [address]., [id number] Lambda free light chain 1.09 0.57 - 2.63 mg/dL [facility] ([place]) Comment: Interpretive Data The Mylene Ig Lambda FLC assay procedure was used. Results from different manufacturers or methods may not be comparable. Serial testing should be performed using the same method. Testing performed by: [facility], [address] [place] [address]., [id number] Blood 06/20/2024 10:0 5 AM SURVEYOR MINE 06/20/2024 8:24 PM SURVEYOR MINE us David Hinton MD LAB BLOOD ORDERABLES Marisol l Result [facility] ([place]) 1 [facility] [place] [address] * CBC with auto differential (06/20/2024 10:05 AM SURVEYOR MINE) WBC 6.0 3.8 - 9.9 K/cumm Comment:Testing performed by : [facility] [address], Medical Office [address], [place] [address] Hgb 13.0 11.9 - 15.5 g/dL [facility] ([place]) Comment:Testing performed by : [facility] [address], Medical Office [address], [place] [address] Hct 37.6 35.6 - 45.5 % [facility] ([place]) Comment:Testing performed by : [facility] [address], Medical Office [address], [place] [address] Plt 198 150 - 400 K/cumm [facility] ([place]) Comment:Testing performed by : [facility] [address], Medical Office [address], [place] [address] MPV 10.3 9.1 - 12.3 fL [facility] ([place]) Comment:Testing performed by : [facility] [address], Medical Office [address], [place] [address] RBC 3.90 3.90 - 5.20 M/cumm [facility] ([place]) Comment:Testing performed by : [facility] [address], Medical Office [address], [place] [address] MCV 96.4 81.3 - 96.4 fL [facility] ([place]) Comment:Testing performed by : [facility] [address], Medical Office [address], [place] [address] MCH 33.3 27.1 - 33.3 pg [facility] ([place]) Comment:Testing performed by : [facility] [address], Medical Office [address], [place] [address] MCHC 34.6 32.3 - 35.7 g/dL [facility] ([place]) Comment:Testing performed by : [facility] [address], Medical Office [address], [place] [address] RDW CV 11.9 11.1 - 14.9 % [facility] ([place]) Comment:Testing performed by : [facility] [address], Medical Office [facility] B [facility] [address], [place] [address] RDW SD 43.2 35.7 - 48.1 fL [facility] ([place] Comment:Testing performed by : [facility] C[facility] [address], Medical Office [facility] [address], [place] [address] NRBC abs Not Measured 0.00 - 0.01 K/cumm [facility] ([place]) Comment:Testing performed by : [facility] C[facility] [address], Medical Office [facility] [address], [place] [address] Blood 06/20/2024 10:0 5 AM SURVEYOR MINE 06/20/2024 10:05 AM SURVEYOR MINE us David Hinton MD LAB BLOOD ORDERABLES Marisol l Result [facility] ([place]) [facility] [place] [address] * (ABNORMAL) Protein electrophoresis with reflex, serum (06/20/2024 10:05 AM SURVEYOR MINE) Protein, sr 6.0(L) 6.2 - 8.2 g/dL Comment:Testing performed by : [facility], [address] [place] [address]., [address] Albumin 3.9 3.2 - 5.0 g/dL [facility] ([place]) Comment:Testing performed by : [address] [address] Alpha-1 globulin 0.3 0.2 - 0.4 g/dL [facility] ([place]) Comment:Testing performed by : [address] [address] Alpha-2 globulin 0.6 0.5 - 1.0 g/dL [facility] ([place]) Comment:Testing performed by : [address] [address] Beta-1 globulin 0.3 0.3 - 0.6 g/dL [facility] ([place]) Comment:Testing performed by : [facility], [address] [place] [address]., [address] Beta-2 globulin 0.3 0.2 - 0.6 g/dL [facility] ([place]) Comment:Testing performed by : [facility], [address] [place] [address]., [address] Gamma globulin 0.6 0.5 - 1.7 g/dL [facility] ([place]) Comment:Testing performed by : [facility], [address] [place] [address]., [address] SPEP interp See Cl Path Rpt [facility] ([place]) Comment:Testing performed by : [facility], [address] [place] [address]., [address] Blood 06/20/2024 10:0 5 AM SURVEYOR MINE 06/20/2024 8:24 PM SURVEYOR MINE us David Hinton MD LAB BLOOD ORDERABLES Marisol damian Result Performing Organization Address City/State/[facility] Co de Phone Number [facility] ([place]) 1 [facility] [place] [address] * Surgical pathology (06/20/2024 10:05 AM SURVEYOR MINE) Miscellaneous 06/20/2024 10: 05 AM SURVEYOR MINE 06/21/2024 7:55 AM SURVEYOR MINE Narrative 06/23/2024 8:38 AM SURVEYOR MINE EPIC results best viewed via link to PDF [facility] Department of Pathology [address] [place] [phone] Final Report Note to Patients: This report may contain a detailed description of human tissue sent by a health care provider to the laboratory for pathologic evaluation. The content of this report is essential for diagnosis and may provide important critical findings. This information may be unfamiliar to patients to review without a medical professional present. It is advised that the patient review this report in the presence of a health care provider who can answer questions and explain the details. Patient Name: ? WILLIE SUAREZ Address: ??[address], [place] [address] Gender: ??F : ??1950 (Age: 74) Service: ?? Location: ?? Hospital #: ??[id number] Patient Type: ??B MED ONC SERIES Taken: ??06/20/2024 Received: ?? 06/21/2024 Accessioned: ??06/21/2024 Physician(s): ??David Hinton MD [facility] Specimen(s) Received A: Blood (serum) Serum Protein ElectrophoresisReported:06/23/2024 Interpretation: Serum Protein Electrophoresis: Normal serum protein electrophoresis pattern. Comment: Serum Protein Electrophoresis: There are no significant abnormalities of the protein fractions. See Epic and/or separate report for protein fraction table. Yoan Weinstein MD PhDReport Electronically Reviewed and Signed Out By ??Yoan Weinstein MD PhD ??06/23/2024 08:35:57 The performance characteristics of some immunohistochemical stains, fluorescence in-situ hybridization tests and immunophenotyping by flow cytometry cited in this report (if any) were determined by the Surgical Pathology Department at [facility] as part of an ongoing director software quality assurance program and in compliance with federally mandated regulations drawn from the Clinical Laboratory Improvement Act of 1988 (CLIA '88). ??Some of these tests rely on the use of analyte specific reagents and are subject to specific labeling requirements by the US Food and Drug Administration. ??Such diagnostic tests may only be performed in a facility that is certified by the Department of Health and Human Services as a high complexity laboratory under CLIA '88. The FDA has determined that such clearance or approval is not necessary. ??This test is used for clinical purposes. ??It should not be regarded as investigational or for research. ??Nevertheless, federal rules concerning the medical use of analyte specific reagents require that the following disclaimer be attached to the report: This test was developed and its performance characteristics determined by the Surgical Pathology Department [facility]. ??It has not been cleared or approved by the U. S. Food and Drug Administration. REPORT IMAGES AND SCANNED DOCUMENTS, IF INCLUDED, ONLY VIEWABLE IN PDF VERSION OF REPORTe o David Hinton MD LAB PATHOLOGY ORDERABLES Final Result * HM DNA STOOL (02/24/2023) Scribed Stool DNA - Cologuard Negative us Historical Provider MD HEALTH MAINTENANCE Final Result from Last 3 Months or Most Recently Relevant to Health Maintenance Additional Health Concerns Infection Onset Date Last Indicated COVID19 08/09/2024 08/09/[address] [facility]ARE [facility] Advance Directives For more information, please contact: [phone] * Full Code (Latest Code Status on File) Date Activated Date Inactivated Comments 01/20/2023 11:31 PM 01/23/2023 8:48 PM * Full Code Date Activated Date Inactivated Comments 01/20/2023 11:31 PM 01/20/2023 11:31 PM Care Teams Top Loader Relationship Specialty Start Date End Date Hake[place] [address] PCP - General Family Medicine 12/12/22
--- OUTSIDE RECORDS SUMMARY | 2024-08-11 14:04 | XMS_ITS | Clinical Summary ---
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 04/20/2024 Visual hallucination 04/20/2024 Vascular dementia with behavior disturbance 03/2024 Assessment & Plan (06/14/2024 4:11 PM ENVIRONMENTAL LAWYER): Stable, secondary to history of cerebral aneurysms, [...] 01/21/2023 Assessment & Plan (06/14/2024 4:10 PM ENVIRONMENTAL LAWYER): Stable, well controlled, blood pressure at goal; [...] soft -will keep holding BB as sinu sbmelissay, asymptomatic Neuropathy 01/21/2023 Assessment & Plan (06/14/2024 4:10 PM ENVIRONMENTAL LAWYER): Stable, generally well controlled, does have pain [...] PM CDT): -continue home gabapentin Seizure disorder ([facility]) 01/21/2023 Assessment & Plan (06/14/2024 4:10 PM ENVIRONMENTAL LAWYER): Stable, well controlled; no episodes since adjustment [...] 01/21/2023 Assessment & Plan (06/14/2024 4:11 PM ENVIRONMENTAL LAWYER): Stable, well controlled, no major changes to [...] 01/21/2023 Assessment & Plan (06/14/2024 4:11 PM ENVIRONMENTAL LAWYER): Stable, mood goes up and down; continue venlafaxine 225 mg daily Assessment & Plan (12/24/2023 4:34 PM CDT): Discussed plan of care with patient and her [id number]. We will add bupropion SR 150 mg once daily in the morning. Patient lives with [id number] and her son who are available to [...] doctor, encounter for 01/19/2023 Falling 11/07/2021 Aneurysm (CMS/HCC) 08/29/2018 Assessment & Plan (11/17/2023 4:09 PM [...] to follow-up Neurology; patient to follow-up with [facility] memory diagnostics clinic for more complete [...] Continue trazodone 150 mg nightly for insomnia Encounters Date Type Department Care Team Description 08/11/2024 Telephone [facility] [address] [phone] Hakeem Salcido MD Medical Question/Miscellaneous 08/09/2024 12:10 PM ENVIRONMENTAL LAWYER - 08/09/2024 3:27 PM ENVIRONMENTAL LAWYER Emergency [facility] Emergency Department [address] [place] [address] Tate Marc MD COVID (Primary Dx) Discharge Disposition: Discharge to home or self care 08/09/2024 Nurse Triage [facility] [address] [phone] Hakeem Salcido MD 08/01/2024 11:00 AM ENVIRONMENTAL LAWYER Procedure visit [facility] at [address], [place] [address] Rula Calvillo Au.D. Sensorineural hearing loss (SNHL), bilateral (Primary Dx); Sensorineural hearing loss (SNHL) of both ears 08/01/2024 10:00 AM ENVIRONMENTAL LAWYER Office Visit [facility] - [address] [place] [phone] Brenda Remy DO Sensorineural hearing loss (SNHL) of both ears 06/28/2024 12:10 PM ENVIRONMENTAL LAWYER Lab [facility] [address] [place] [address] Vitamin B12 deficiency; Vitamin B6 deficiency 06/28/2024 10:30 AM ENVIRONMENTAL LAWYER Office Visit [facility] [address] [place] [address] [address] [place] [address] Reggie Fam MD Numbness and tingling of both lower extremities (Primary Dx); Moderate Lewy body dementia with mood disturbance (HCC); Vitamin B12 deficiency; Vitamin B6 deficiency; Seizure disorder (CMS/HCC) (HCC) 06/20/2024 10:30 AM ENVIRONMENTAL LAWYER Clinical Support [address] [place] [address] Encounter for care related to Port-a-Cath (Primary Dx); Waldenstrom's macroglobulinemia 06/20/2024 10:15 AM ENVIRONMENTAL LAWYER Office Visit [facility] [address] [place] [address] [address] [place] [address] David Hinton MD Encounter for care related to Port-a-Cath (Primary Dx); Waldenstrom's macroglobulinemia 06/20/2024 9:45 AM ENVIRONMENTAL LAWYER Lab [address] [place] [phone] Waldenstroms macroglobulinemia (Primary Dx); Waldenstrom's macroglobulinemia 06/17/[address] Office d[address] [place] [address] David Hinton MD 05/31/2024 11:15 AM ENVIRONMENTAL LAWYER Office Visit [facility] [address] [phone] Hakeem Salcido MD Medicare annual wellness visit, subsequent (Primary Dx); Sensorineural hearing loss (SNHL) of both ears; Hypertension, essential; Neuropathy (CMS/HCC); Seizure disorder (CMS/HCC) (HCC); Acquired hypothyroidism; Mild episode of recurrent major depressive disorder (HCC); Vascular dementia with behavior disturbance (HCC) from Last 3 Months Immunizations Name Administration Dates Next Due Influenza, [...] Original/omicron Ba.1, A 05/08/2023 ZOSTER Recombinant 04/19/2019,02/15/2019 Surgical History Surgery Date Site/Laterality Comments COLONOSCOPY UPPER GASTROINTESTINAL ENDOSCOPY HYSTERECTOMY ANGIO SELECTIVE INTERNAL CAROTID LEFT 01/04/2024 Lef t Medical History Medical History Date Comments Depression Dementia (HCC) Hypertension Aneurysm (CMS/HCC) (HCC) Anxiety Cancer (CMS/HCC) (HCC) Gastric reflux Hyperthyroidism Lumbar stenosis Seizures (HCC) TIA (transient ischemic attack) Waldenstrom macroglobulinemia Family History Medical History Relation Name Comments Hypertension Father Alzheimer's disease Mother onset in her 80s Relation Name Status Comments Father Mother Social History Tobacco Use Types Packs/Day Years [...] on file Sexual Orientation Not on file Obstetrics History Last Filed Vital Signs Vital Sign Reading Time Taken Comments Blood Pressure 122/82 08/09/2024 11:47 AM ENVIRONMENTAL LAWYER Pulse 71 08/09/2024 11:47 AM ENVIRONMENTAL LAWYER Temperature 37 ??C (98.6 ??F) 08/09/2024 11:47 AM ENVIRONMENTAL LAWYER Respiratory Rate 16 08/09/2024 11:47 AM ENVIRONMENTAL LAWYER Oxygen Saturation 99% 08/09/2024 11:47 AM ENVIRONMENTAL LAWYER Inhaled Oxygen Concentration - - Weight 49.4 kg (109 lb) 08/09/2024 11:47 AM ENVIRONMENTAL LAWYER Height 160 cm (5' 3 ) 08/09/2024 11:47 AM ENVIRONMENTAL LAWYER Body Mass Index 19.31 08/09/2024 11:47 AM ENVIRONMENTAL LAWYER Plan of Treatment Health Maintenance Due Date Last Done Comments Hepatitis C Screening 1950 Osteoporosis Screening-Bone Density Scan 1950 DTaP/Tdap/Td Vaccine (1 - Tdap) 1959 Hepatitis B Screening 1966 Covid-19 Vaccine (4 2023-2 5 season) 2024 05/05/2024, 05/08/2023, 05/08/2023, Additional history exists Depression Screening 05/31/2025 05/31/2024, 02/11/2024, 12/24/2023, Additional history exists Fall Risk Assessment 05/31/2025 05/31/2024, 02/11/2024, 01/04/2024, Additional history exists Well Visit 65+ 05/31/2025 05/31/2024 Colon Cancer Screening-DNA Stool 02/24/2026 02/25/20 23 Pneumococcal vaccine 65+ Completed 017, 12/07/2015, 11/07/2015, Additional history exists Zoster Vaccine Completed 04/19/2019, 02/15/2019 Influenza Vaccine Completed 05/05/2024, , 05/08/2023, Additional history exists Medical Devices Implanted Type Area Deputy Director Device Identifier Shelf Expiration Date Model / Serial / Lot Kristianrgil L7 Brain Description:Static magnetic field of 3-Sharon or less ?? Titanium clip - Maximum spatial gradient magnetic field of 3000 Gauss/cm (30.0 T/m) or less ?? Phynox clip - Maximum spatial gradient magnetic field of 1,500-Gauss/cm (15.0 T/m) or less ?? Maximum MR system reported, whole body averaged ABBIE of4-W/kg (First Level Controlled Operating Mode) Yargil L7 5.7mm Brain Description:Static magnetic field of [...] of 720 Gauss/cm or less. ?? Maximum gwdki-rmvg-kzvejbcn specific absorption rate (ABBIE) of 4.0 W/kg for 15 minutes of scanning Procedures Procedure Name Priority Date/Time Associated Diagnosis Comments XR CHEST PA LATERAL 2 VIEWS ED 08/09/2024 1:[address] ABDOMEN PELVIS W CONTRAST ED 08/09/2024 1:31 PM ENVIRONMENTAL LAWYER POCT CREATININE - DEVICE Routine 08/09/2024 1:03 PM ENVIRONMENTAL LAWYER EGFR STAT 08/09/2024 12:55 PM ENVIRONMENTAL LAWYER DIFFERENTIAL AUTO Routine 08/09/2024 12: 55 PM ENVIRONMENTAL LAWYER LIPASE STAT 08/09/2024 12:55 PM ENVIRONMENTAL LAWYER COMPREHENSIVE METABOLIC PANEL STAT 08/09/2024 12:55 PM ENVIRONMENTAL LAWYER CBC WITH AUTO DIFFERENTIAL Routine 08/09/2024 12:55 PM ENVIRONMENTAL LAWYER INFLUENZA A/B, RSV, AND COVID-19 PCR Routine 08/09/2024 12:55 PM ENVIRONMENTAL LAWYER AUDIOGRAM Routine 08/01/2024 11:00 AM ENVIRONMENTAL LAWYER Sensorineural hearing loss (SNHL), bilateral VITAMIN B12 Routine 06/28/2024 12:26 PM ENVIRONMENTAL LAWYER Vitamin B12 deficiency VITAMIN B6 Routine 06/28/2024 12:26 PM ENVIRONMENTAL LAWYER Vitamin B6 deficiency FOLATE Routine 06/28/2024 12:26 PM ENVIRONMENTAL LAWYER Vitamin B12 deficiency SURGICAL PATHOLOGY Routine 06/20/2024 10 :05 AM ENVIRONMENTAL LAWYER PROTEIN ELECTROPHORESIS, WITH REFLEX, SERUM Routine 06/20/2024 10:05 AM ENVIRONMENTAL LAWYER Waldenstrom's macroglobulinemia IMMUNOGLOBULIN FREE LIGHT CHAINS Routine 06/20/2024 10:05 AM ENVIRONMENTAL LAWYER Waldenstrom's macroglobulinemia DIFFERENTIAL AUTO Routine 06/20/2024 10: 05 AM ENVIRONMENTAL LAWYER Waldenstroms macroglobulinemia CBC WITH AUTO DIFFERENTIAL Routine 06/20/2024 10:05 AM ENVIRONMENTAL LAWYER Waldenstroms macroglobulinemia HM DNA STOOL Routine 02/24/2023 from Last 3 Months or Most Recently Relevant to Health Maintenance Results * XR Chest PA Lateral 2 Views (08/09/2024 1:37 PM ENVIRONMENTAL LAWYER) Anatomical Region Laterality Modality Body, Chest N/A Computed Radiogr aphy 08/09/2024 1:49 PM ENVIRONMENTAL LAWYER Impressions 08/09/2024 2:36 PM ENVIRONMENTAL LAWYER The current study is compared with the [...] Josselyn Cruz M.D. Narrative 08/09/2024 2:36 PM ENVIRONMENTAL LAWYER EXAMINATION: 2 view chest radiograph Procedure Note [...] Abdomen Pelvis W Contrast (08/09/2024 1:31 PM ENVIRONMENTAL LAWYER) Anatomical Region Laterality Modality Body N/A Computed Tomogra phy 08/09/2024 2:05 PM ENVIRONMENTAL LAWYER Impressions 08/09/2024 2:36 PM ENVIRONMENTAL LAWYER 1. ??No definite acute abdominal or pelvic [...] Josselyn Cruz M.D. Narrative 08/09/2024 2:36 PM ENVIRONMENTAL LAWYER EXAMINATION: ??Computed tomography of the abdomen and [...] by: Josselyn Cruz M.D. Tate Marc MD [facility] CT PROCEDURES Final Re sult * POCT creatinine (08/09/2024 1:03 PM ENVIRONMENTAL LAWYER) Creatinine POC 0.9 0.6 - 1.1 mg/dL Blood 08/09/2024 1:03 PM ENVIRONMENTAL LAWYER 08/09/2024 1:03 PM ENVIRONMENTAL LAWYER Tate Marc MD LAB POCT ORDERABLES - KEATON CE Final Result Performing Organization Address [facility] de Phone Number [facility] [place] [address] * (ABNORMAL) Influenza A/B, RSV, and COVID-19 PCR Nasopharyngeal (08/09/2024 12:55 PM ENVIRONMENTAL LAWYER) [facility] COVID-19 RNA Positive(A) Negative [facility] Influenza A RNA Negative Negative [facility] Influenza B RNA Negative Negative [facility] RSV RNA Negative Negative [facility] Comment: Interpretive data: Testing performed by [facility] ([phone]). This test is performed using the [employer] Xpert Xpress CoV-2/Flu/RSV plus assay. This is a multiplex, real-time reverse transcriptase PCR assay intended for the qualitative detection of nucleic acid from SARS-CoV-2, influenza A, influenza B, and respiratory syncytial virus. This assay has been cleared by the [place] Food and Drug administration. The performance characteristics have been verified by the [facility]. ??Results must be considered in the clinical context, and a negative result does not rule out infection. Interpretive Data last revised 2023 Nasopharyngeal 08/09/2024 12 :55 PM ENVIRONMENTAL LAWYER 08/09/2024 1:07 PM ENVIRONMENTAL LAWYER Narrative [facility] - 08/09/2024 1:50 PM ENVIRONMENTAL LAWYER Is the Patient experiencing symptoms consistent with COVID?->Unknown Manasa Carranza MD LAB MICROBIOLOGY - GENERA L ORDERABLES Final Result Performing Organization Address [facility]/ZIP Co de Phone Number [facility] [place] [address] [facility] * eGFR (08/09/2024 12:55 PM ENVIRONMENTAL LAWYER) [facility] eGFR 73 >=60 mL/min/1. 73 m2 Comment: [...] reviewed 2021. Blood 08/09/2024 12:5 5 PM ENVIRONMENTAL LAWYER 08/09/2024 1:10 PM ENVIRONMENTAL LAWYER us Tate Marc MD LAB BLOOD ORDERABLES Final Result Performing Organization Address City/State/[facility] Co de Phone Number [facility] [place] [address] * (ABNORMAL) Differential, auto (08/09/2024 12:55 PM ENVIRONMENTAL LAWYER) Pathologist [facility] Neutrophil abs 5.8 1.5 - 6.5 K/cumm Imm gran abs 0.0 0.0 - 0.1 K/cumm [facility] Lymphocyte abs 0.7(L) 0.8 - 3.3 K/cumm [facility] Monocyte abs 0.7 0.2 - 0.8 K/cumm [facility] Eosinophil abs 0.0 0.0 - 0.5 K/cumm [facility] Basophil abs 0.1 0.0 - 0.1 K/cumm [facility] Neutrophil pct 79.4 % [facility] Comment: Interpretive Data Percent cell count reference ranges are not reported, since discordance with absolute values may lead to misinterpretation of CBC data. Current Interpretive Data was last revised on 2017. Imm gran pct 0.4 % [facility] Comment: Interpretive Data Percent cell count reference ranges are not reported, since discordance with absolute values may lead to misinterpretation of CBC data. Current Interpretive Data was last revised on 2017. Lymphocyte pct 9.2 % [facility] Comment: Interpretive Data Percent cell count reference ranges are not reported, since discordance with absolute values may lead to misinterpretation of CBC data. Current Interpretive Data was last revised on 2017. Monocyte pct 9.6 % [facility] Comment: Interpretive Data Percent cell count reference ranges are not reported, since discordance with absolute values may lead to misinterpretation of CBC data. Current Interpretive Data was last revised on 2017. Eosinophil pct 0.4 % [facility] Comment: Interpretive Data Percent cell count reference ranges are not reported, since discordance with absolute values may lead to misinterpretation of CBC data. Current Interpretive Data was last revised on 2017. Basophil pct 1.0 % [facility] Comment: Interpretive Data Percent cell count reference ranges are not reported, since discordance with absolute values may lead to misinterpretation of CBC data. Current Interpretive Data was last revised on 2017. Blood 08/09/2024 12:5 5 PM ENVIRONMENTAL LAWYER 08/09/2024 1:10 PM ENVIRONMENTAL LAWYER us Tate Marc MD LAB BLOOD ORDERABLES Final Result [facility] Department of Laboratories [place], [place] [id number] * (ABNORMAL) CBC with auto differential (08/09/2024 12:55 PM ENVIRONMENTAL LAWYER) WBC 7.3 3.8 - 9.9 K/cumm Hgb 13.6 11.9 - 15.5 g/dL [facility] Hct 38.6 35.6 - 45.5 % [facility] Plt 216 150 - 400 K/cumm [facility] MPV 10.8 9.1 - 12.3 fL [facility] RBC 4.05 3.90 - 5.20 M/cumm [facility] MCV 95.3 81.3 - 96.4 fL [facility] MCH 33.6(H) 27.1 - 33.3 pg [facility] MCHC 35.2 32.3 - 35.7 g/dL [facility] RDW CV 12.3 11.1 - 14.9 % [facility] RDW SD 42.5 35.7 - 48.1 fL [facility] NRBC abs 0.00 0.00 - 0.01 K/cumm [facility] Blood 08/09/2024 12:5 5 PM ENVIRONMENTAL LAWYER 08/09/2024 1:10 PM ENVIRONMENTAL LAWYER Tate Marc MD LAB BLOOD ORDERABLES Final Result Performing Organization Address [facility] Co de Phone Number [facility] [place] [address] * Lipase (08/09/2024 12:55 PM ENVIRONMENTAL LAWYER) [facility] Lipase 14 10 - 99 Units/L Blood 08/09/2024 12:5 5 PM ENVIRONMENTAL LAWYER 08/09/2024 1:10 PM ENVIRONMENTAL LAWYER Tate Marc MD LAB BLOOD ORDERABLES Final Result Performing Organization Address [facility] Co de Phone Number [facility] [place] [address] * Comprehensive metabolic panel (08/09/2024 12:55 PM ENVIRONMENTAL LAWYER) [facility] Sodium 139 135 - 145 mmol/L Potassium, pl 3.9 3.3 - 4.9 mmol/L [facility] Chloride 100 97 - 110 mmol/L [facility] CO2 29 22 - 32 mmol/L [facility] Anion gap 10 2 - 15 mmol/L [facility] BUN 7 6 - 25 mg/dL [facility] Creatinine 0.83 0.60 - 1.10 mg/dL [facility] Glucose 103 70 - 199 mg/dL [facility] Comment: Interpretive Data Fasting glucose >/= [...] 2022. Calcium 9.2 8.5 - 10.3 mg/dL [facility] Bilirubin, total 0.2 0.1 - 1.2 mg/dL [facility] Protein, pl 6.6 6.5 - 8.5 g/dL [facility] Albumin 4.2 3.5 - 5.0 g/dL [facility] Alk phos 46 40 - 130 Units/L [facility] ALT 9 7 - 45 Units/L [facility] AST 20 10 - 45 Units/L [facility] Blood 08/09/2024 12:5 5 PM ENVIRONMENTAL LAWYER 08/09/2024 1:10 PM ENVIRONMENTAL LAWYER us Tate Marc MD LAB BLOOD ORDERABLES Final Result [facility] Department [place] [address] * AUDIOGRAM (08/01/2024 11:00 AM ENVIRONMENTAL LAWYER) Narrative Rula Calvillo Au.D. - 08/01/2024 11:00 AM ENVIRONMENTAL LAWYER Rula Calvillo Au.D. ? 08/01/2024 ??1:17 PM Audiogram Performed by: Rula Calvillo Au.D. Authorized by: Brenda Remy, DO ?? us Brenda Remy DO AUDIOLOGY SERVICES ORDERABLE S Final Result * Vitamin B6 (06/28/2024 12:26 PM ENVIRONMENTAL LAWYER) Pyridoxal phosphate (Vit B6) 13 5 - 50 mcg/L [facility] Comment: ADDITIONAL INFORMATION This test was developed and its performance characteristics determined by [facility] in a manner consistent with CLIA requirements. This test has not been cleared or approved by the U.S. Food and Drug Administration. Test Performed by: [facility] [address] [place] [address] Zinc Plate Cutter: Moses Hummel Ph.D.; CLIA# [id number] Blood 06/28/2024 12:2 6 PM ENVIRONMENTAL LAWYER 06/28/2024 12:32 PM ENVIRONMENTAL LAWYER Reggie Fam MD LAB BLOOD ORDERABLES Fi nal Result [facility] [place]) [address] [facility] [place] [address] [facility] * Folate (06/28/2024 12:26 PM ENVIRONMENTAL LAWYER) Pathologist [facility] Folic acid >20.0 >=5.0 ng/mL Comment:Slightly Hemolyzed S pecimen. Results may be affected. Blood 06/28/2024 12:2 6 PM ENVIRONMENTAL LAWYER 06/28/2024 12:32 PM ENVIRONMENTAL LAWYER Reggie Fam MD LAB BLOOD ORDERABLES Fi nal Result [facility] [place] [address] * Vitamin B12 (06/28/2024 12:26 PM ENVIRONMENTAL LAWYER) Vitamin B12 728 230 - 1,250 pg/mL Blood 06/28/2024 12:2 6 PM ENVIRONMENTAL LAWYER 06/28/2024 12:32 PM ENVIRONMENTAL LAWYER Reggie Fam MD LAB BLOOD ORDERABLES Fi nal Result [facility] ([place]) 1 [facility] [place] [address] * Differential, auto (06/20/2024 10:05 AM ENVIRONMENTAL LAWYER) Neutrophil abs 4.2 1.5 - 6.5 K/cumm Comment:Testing performed by : [facility] [address], Medical Office [facility] [address], [place] [address] Imm gran abs 0.0 0.0 - 0.1 K/cumm [facility] Comment:Testing performed by : [facility] [address], Medical Office [facility] [address], [place] [address] Lymphocyte abs 1.1 0.8 - 3.3 K/cumm [facility] ([place]) Comment:Testing performed by : [facility] [address], Medical Office [facility] [address], [place] [address] Monocyte abs 0.5 0.2 - 0.8 K/cumm [facility] ([place]) Comment:Testing performed by : [facility] [address], Medical Office [facility] [address], [place] [address] Eosinophil abs 0.1 0.0 - 0.5 K/cumm [facility] ([place]) Comment:Testing performed by : [facility] [address], Medical Office [facility] [address], [place] [address] Basophil abs 0.0 0.0 - 0.1 K/cumm [facility] ([place]) Comment:Testing performed by : [facility] [address], Medical Office [facility] [address], [place] [address] Neutrophil pct 70.3 % [facility] ([place]) Comment: Interpretive Data Percent cell count reference ranges are not reported, since discordance with absolute values may lead to misinterpretation of CBC data. Current Interpretive Data was last revised on 2022. Testing performed by: [facility] [address], Medical Office [address], [place] [address] Imm gran pct 0.2 % [facility] ([place]) Comment: Interpretive Data Percent cell count reference ranges are not reported, since discordance with absolute values may lead to misinterpretation of CBC data. Current Interpretive Data was last revised on 2022. Testing performed by: [facility] [address], Medical Office [facility] [address], [place] [address] Lymphocyte pct 18.7 % [facility] ([place] Comment: Interpretive Data Percent cell count reference ranges are not reported, since discordance with absolute values may lead to misinterpretation of CBC data. Current Interpretive Data was last revised on 2022. Testing performed by: [facility] [address], Medical Office [address], [place] [address] Monocyte pct 7.8 % [facility] ([place]) Comment: Interpretive Data Percent cell count reference ranges are not reported, since discordance with absolute values may lead to misinterpretation of CBC data. Current Interpretive Data was last revised on 2022. Testing performed by: [facility] [address], Medical Office [facility] [address], [place] [address] Eosinophil pct 2.3 % [facility] ([place]) Comment: Interpretive Data Percent cell count reference ranges are not reported, since discordance with absolute values may lead to misinterpretation of CBC data. Current Interpretive Data was last revised on 2022. Testing performed by: [facility] [address], Medical Office [facility] [address], [place] [address] Basophil pct 0.7 % [facility] ([place]) Comment: Interpretive Data Percent cell count reference ranges are not reported, since discordance with absolute values may lead to misinterpretation of CBC data. Current Interpretive Data was last revised on 2022. Testing performed by: [facility] [address], Medical Office [address], [place] [address] Blood 06/20/2024 10:0 5 AM ENVIRONMENTAL LAWYER 06/20/2024 10:05 AM ENVIRONMENTAL LAWYER David Hinton MD LAB BLOOD ORDERABLES Marisol l Result [facility] ([place]) 1 [facility] [place] [address] * Immunoglobulin free light chains (06/20/2024 10:05 AM ENVIRONMENTAL LAWYER) [place]/Lambda ratio 1.40 0.26 - 1.65 Comment:Testing performed by : [facility], [address] [place] [address], [address] [place] free light chain 1.49 0.33 - 1.94 mg/dL [facility] ([place]) Comment: Interpretive Data The Mylene Ig [place] FLC assay procedure was used. Results from different manufacturers or methods may not be comparable. Serial testing should be performed using the same method. Testing performed by: [address], [address] Lambda free light chain 1.09 0.57 - 2.63 mg/dL [facility] ([place]) Comment: Interpretive Data The Mylene Ig Lambda FLC assay procedure was used. Results from different manufacturers or methods may not be comparable. Serial testing should be performed using the same method. Testing performed by: [address], [address] Blood 06/20/2024 10:0 5 AM ENVIRONMENTAL LAWYER 06/20/2024 8:24 PM ENVIRONMENTAL LAWYER David Hinton MD LAB BLOOD ORDERABLES Marisol l Result CARMEN LOYA ([place]) 1 [facility] Department [place] [address] * CBC with auto differential (06/20/2024 10:05 AM ENVIRONMENTAL LAWYER) Pathologist [facility] WBC 6.0 3.8 - 9.9 K/cumm Comment:Testing performed by : [facility] [place], [address] [facility] , Medical Office [address], [place] [address] Hgb 13.0 11.9 - 15.5 g/dL [facility] LO[facility] ([place]) Comment:Testing performed by : [facility], [address], Medical Office [address], [place] [address] Hct 37.6 35.6 - 45.5 % [facility] ([place]) Comment:Testing performed by : [facility] [address], Medical Office [address], [place] [address] Plt 198 150 - 400 K/cumm [facility] ([place]) Comment:Testing performed by : [facility] [address], Medical Office [facility] [address], [place] [address] MPV 10.3 9.1 - 12.3 fL [facility] ([place]) Comment:Testing performed by : [facility] [address], Medical Office [facility] [address], [place] [address] RBC 3.90 3.90 - 5.20 M/cumm [facility] ([place]) Comment:Testing performed by : [facility] [address], Medical Office [facility] [address], [place] [address] MCV 96.4 81.3 - 96.4 fL [facility] ([place]) Comment:Testing performed by : [facility] [address], Medical Office [facility] [address], [place] [address] MCH 33.3 27.1 - 33.3 pg [facility] ([place]) Comment:Testing performed by : [facility] [address], Medical Office [facility] [address], [place] [address] MCHC 34.6 32.3 - 35.7 g/dL [facility] ([place]) Comment:Testing performed by : [facility] [address], Medical Office [facility] [address], [place] [address] RDW CV 11.9 11.1 - 14.9 % [facility] ([place]) Comment:Testing performed by : [facility] [address], Medical Office [address], [place] [address] RDW SD 43.2 35.7 - 48.1 fL [facility] ([place]) Comment:Testing performed by : [facility] [address], Medical Office [address], [place] [address] NRBC abs Not Measured 0.00 - 0.01 K/cumm [facility] ([place]) Comment:Testing performed by : [facility] [place], [address] [facility] , Medical Office [address], [place] [address] Blood 06/20/2024 10:0 5 AM ENVIRONMENTAL LAWYER 06/20/2024 10:05 AM ENVIRONMENTAL LAWYER us David Hinton MD LAB BLOOD ORDERABLES Marisol l Result [facility] ([place]) 1 [facility] Department [place] [address] * (ABNORMAL) Protein electrophoresis with reflex, serum (06/20/2024 10:05 AM ENVIRONMENTAL LAWYER) Protein, sr 6.0(L) 6.2 - 8.2 g/dL Comment:Testing performed by : [address] [address] Albumin 3.9 3.2 - 5.0 g/dL [facility] ([place]) Comment:Testing performed by : [address], [address] Alpha-1 globulin 0.3 0.2 - 0.4 g/dL [facility] ([place]) Comment:Testing performed by : [address], [address] Alpha-2 globulin 0.6 0.5 - 1.0 g/dL [facility] ([place]) Comment:Testing performed by : [address] [address] Beta-1 globulin 0.3 0.3 - 0.6 g/dL [facility] ([place]) Comment:Testing performed by : [address] [address] Beta-2 globulin 0.3 0.2 - 0.6 g/dL [facility] ([place]) Comment:Testing performed by : [address], [address] Gamma globulin 0.6 0.5 - 1.7 g/dL [facility] ([place]) Comment:Testing performed by : [address], [address] SPEP interp See Cl Path Rpt HUETHAN LOYA ([place]) Comment:Testing performed by : [facility], [address] [place] [address]., [address] Blood 06/20/2024 10:0 5 AM ENVIRONMENTAL LAWYER 06/20/2024 8:24 PM ENVIRONMENTAL LAWYER us David Hinton MD LAB BLOOD ORDERABLES Marisol l Result CARMEN SHALINI ([place]) 1 [facility] Department [place] [address] * Surgical pathology (06/20/2024 10:05 AM ENVIRONMENTAL LAWYER) Miscellaneous 06/20/2024 10: 05 AM ENVIRONMENTAL LAWYER 06/21/2024 7:55 AM ENVIRONMENTAL LAWYER Narrative 06/23/2024 8:38 AM ENVIRONMENTAL LAWYER EPIC results best viewed via link to PDF [facility] Department of Pathology [address] [place] [id number] Final Report Note to Patients: This report [...] and explain the details. Patient Name: ? LILIANBRITTSEVERIANO Grider Address: ??[address], [place] [address] Gender: ??F : ??1950 (Age: 74) Service: ?? Location: ?? Hospital #: ??[id number] Patient Type: ??B MED ONC SERIES Taken: ??06/20/2024 Received: ?? 06/21/2024 Accessioned: ??06/21/2024 Physician(s): ??David Hinton MD [facility] Specimen(s) Received A: Blood (serum) Serum [...] determined by the Surgical Pathology Department at [facility] as part of an ongoing director quality systems program and in compliance with federally mandated [...] characteristics determined by the Surgical Pathology Department [facility]. ??It has not been cleared or approved by the U. S. Food and Drug Administration. REPORT IMAGES AND SCANNED DOCUMENTS, IF INCLUDED, ONLY VIEWABLE IN PDF VERSION OF REPORTe o David Hinton MD LAB PATHOLOGY ORDERABLES Final Result * HM DNA STOOL (02/24/2023) Scribed Stool DNA - Cologuard Negative Historical Provider HEALTH MAINTENANCE Final Result from Last 3 Months or Most Recently Relevant to Health Maintenance Additional Health Concerns Infection Onset Date Last Indicated COVID19 08/09/2024 08/09/2024 Insurance MEDICARE [facility] MEDICARE [facility] MEDICARE [facility] Advance Directives For more information, please contact: [phone] * Full Code (Latest Code Status on File) Date Activated Date Inactivated Comments 01/20/2023 11:31 PM 01/23/2023 8:48 PM * Full Code Date Activated Date Inactivated Comments 01/20/2023 11:31 PM 01/20/2023 11:31 PM 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
--- NOTE | 2024-08-11 14:09 | PC.NURSE ---
While in CT scan with the patient EMS stated that her SPO2 was 74% but unsure if it was accurate. patient was placed on the monitor in CT and spo2 was 55%, patient had a weak thready pulse. ERP was contacted and responded to CT. Patient was unresponsive, cyanotic, and patient was placed on defibulation pads and cafeteria monitor. patient was moved to ED room 4 and was placed on the monitors. spo2 was 66% patient was placed on NRB and manually ventilated with a BVM. ERP at bedside, port accessed due to lack of IV access respiratory called to the room. 1331 - 20 etomidate and 100 [address], 23 at the top lip. 1334 color change and bilateral breath sounds spo2 93% 1343 - og tube inserted at 65 at the teeth ventilator settings per ERP : RR- 18 Vt: 400 FIO2 : 100% Peep: 5 patient was given 1mg ativan at 1335 and 1mg dilaudid at 1336 xray was preformed post intubation and post og placement.
[2024-08-11 14:11] LABS: Alveolar/Arterial O2 Gradient 613.6 mmHg; Base Excess ABG 2.9 mEq/l (+/-2.0); Fractional Inspired Oxygen 100 %; HCO3 ABG 26.1 mEq/l (22.0-26.0); Oxygen Content ABG 20.9 %vol (16.0-22.0); Oxygen Saturation ABG 93.8 % (95.0-100.0); PO2 ABG 63.4 mmHg (80.0-100.0); PO2 FiO2 Ratio Arterial Blood 0.63 %; Total Hemoglobin 16.2 g/dL (12.0-18.0); pH ABG 7.479 (7.350-7.450)
[2024-08-11 14:15] LABS: Device VENTILATOR; Modified Allen's Test Pass; Site Drawn RIGHT RADIAL
[2024-08-11 14:16] LABS: Arterial Blood Gas PEEP 5 cmH2O; Arterial Blood Gas Tidal Volume 400 ml; Arterial Blood Gas Vent Mode CMV; Arterial Blood Gas Ventilator rate 18 /MIN
[2024-08-11] MEDS: levETIRAcetam 1000MG/NACL100ML 1,000 MG/100 ML BAG 400 MG IVPB (14:41)
[2024-08-11] MEDS: FENTANYL 2,500MCG/NS250ML(*CRX 2,500 MCG/250 ML BAG IV CONT (14:42)
[2024-08-11 14:47] LABS: Alanine Aminotransferase 15 U/L (6-35); Albumin Level 3.9 g/dL (3.5-5.1); Alkaline Phosphatase 47 U/L (38-126); Anion Gap 10 mmol/L (4-12); Aspartate Amino Transferase 46 U/L (14-36); Bilirubin,Total 0.7 mg/dL (0.2-1.3); Blood Urea Nitrogen 10 mg/dL (7-17); Calcium 8.6 mg/dL (8.4-10.2); Carbon Dioxide 28 mmol/L (22-30); Chloride 95 mmol/L (98-107); Estimated CRCL calculation 30 ml/min; Estimated Glomerular Filt Rate > 60; Glucose 111 mg/dL (65-110); Lipase 21 U/L (23-300); Magnesium 1.8 mg/dL (1.6-2.3); Potassium 3.7 mmol/L (3.4-5.0); Sodium 133 mmol/L (137-145)
[2024-08-11] MEDS: MIDAZOLAM 100MG/NS 100ML(*CRX) 100 MG/100 ML BAG IV CONT (14:47)
[2024-08-11 14:53] LABS: NT Pro B Type Natriuretic Pept 447 pg/mL (19.9-100); Troponin I 0.012 ng/mL (0.000-0.034)
[2024-08-11] MEDS: LORazepam INJ (*CRX) 2 MG/ML VIAL 1 MG IV PUSH (14:53)
--- NOTE | 2024-08-11 15:05 | PC.NURSE ---
patients daughter in law bedside and phone call occured between erp and spouse of the patient and agreement between family was made to withdraw care and maintain comfort during end of life.
[2024-08-11 15:14] LABS: Influenza A QL RT-PCR Negative (Negative); Influenza B QL RT-PCR Negative (Negative); RSV RNA, RT-PCR Negative (Negative); SARS-CoV-2 RNA PCR Positive (Negative)
[2024-08-11] MEDS: LORazepam INJ (*CRX) 2 MG/ML VIAL IV PUSH (15:38)
[2024-08-11] MEDS: MORPHINE SULFATE (*CRX) 4 MG/ML INJ IV PUSH ×2 (15:38→16:39)
== END 2024-08-11 19:48 | disposition expired ==
PROVIDERS: Emergency Provider Emergency Medicine; PCP Hospitalist
DX: J96.91 Respiratory failure, unspecified with hypoxia (principal); U07.1 COVID-19; Z51.5 Encounter for palliative care; F03.C0 Unspecified dementia, severe, without behavioral disturbance, psychotic disturbance, mood disturbance, and anxiety; I67.9 Cerebrovascular disease, unspecified; I10 Essential (primary) hypertension; E03.9 Hypothyroidism, unspecified; G89.29 Other chronic pain; F41.9 Anxiety disorder, unspecified; Z85.9 Personal history of malignant neoplasm, unspecified; Z87.891 Personal history of nicotine dependence; Z79.899 Other long term (current) drug therapy
CPT/HCPCS: 31500; 36415; 36600; 80053; 82805; 83690; 83735; 83880; 84100; 84484; 85018; 87637; 96365; 96367; 96375; 96376; 99284; J1171; J1953; J2060; J2250; J2270; J3010